=== PATIENT | male | born 1955 | race Hispanic/Latino ===

== ENCOUNTER 2019-07-16 05:51 | Emergency (ER) | payer BC, OTHER ==
[2019-07-16] MEDS ORDERED: HYDROCODONE/APAP 10/325 TAB ONE (07:18)
[2019-07-16] MEDS ORDERED: CYCLOBENZAPRINE 10 MG TAB ONE (07:18)
[2019-07-16] MEDS ORDERED: LIDOCAINE 4% PATCH ONE (07:19)
[2019-07-16] MEDS ORDERED: dexAMETHasone 10 MG/ML VIAL ONE (08:40)
--- NOTE | 2019-07-16 09:26 | ER ---
Nurse's Notes [facility] Name: Steven Ashton Age: 63 yrs Sex: Male : 1955 Arrival Date: 07/16/2019 Time: 05:56 Bed 7 Private MD: Diagnosis: Low back pain Presentation: 07/15 06:16 Chief complaint: Patient states: Low back pain x 3 days, has not had any relief; Denies lp1 any previous injury; States feeling like a muscle spasm. Coronavirus screen: Proceed with normal triage. Ebola Screen: No symptoms or risks identified at this time. Initial Sepsis Screen: Does the patient meet any 2 criteria? No. Patient's initial sepsis screen is negative. Does the patient have a suspected source of infection? No. Patient's initial sepsis screen is negative. Risk Assessment: Do you want to hurt yourself or someone else? Patient reports no desire to harm self or others. Onset of symptoms was July 16, 2019. 06:16 Method Of Arrival: Wheelchair lp1 06:16 Acuity: KENDALL 3 lp1 Triage Assessment: 06:20 General: Appears in no apparent distress. Behavior is calm, cooperative. Pain: lp1 Complains of pain in lumbar area Pain currently is 8 out of 10 on a pain scale. Quality of pain is described as sharp. Cardiovascular: Patient's skin is warm and dry. Respiratory: No deficits noted. Derm: Skin is pink, warm \T\ dry. Musculoskeletal: Circulation, motion, and sensation intact. Historical: - Allergies: 06:20 Dramamine; lp1 06:20 TETRACYCLINES; lp1 - Home Meds: 06:47 metformin 1,000 mg oral tab 1 tab 2 times per day [Active]; Xarelto 20 mg oral tab 1 lp1 tab once daily [Active]; atorvastatin 20 mg Oral tab 1 tab once daily [Active]; pantoprazole 40 mg oral TbEC 1 tab once daily [Active]; Plavix 75 mg Oral tab 1 tab once daily [Active]; losartan-hydrochlorothiazide 100-25 mg oral tab 1 tab once daily [Active]; Invokana 300 mg oral tab 1 tab once daily [Active]; aspirin 81 mg Oral chew 1 tab once daily [Active]; Toujeo SoloStar 300 unit/mL (1.5 mL) subcutaneous inpn [Active]; - PMHx: 06:20 Diabetes - NIDDM; Hypertension; CVA; lp1 - PSHx: 06:20 None; lp1 - Immunization history:: Adult Immunizations up to date. - Social history:: Smoking status: Patient denies any tobacco usage or history of. Screenin:20 Abuse screen: Denies threats or abuse. Denies injuries from another. Nutritional lp1 screening: No deficits noted. Tuberculosis screening: No symptoms or risk factors identified. Fall Risk None identified. Assessment: 07:10 General: Appears in no apparent distress. uncomfortable, Behavior is calm, cooperative, em appropriate for age. Pain: Complains of pain in lumbar area Pain currently is 8 out of 10 on a pain scale. Neuro: Level of Consciousness is awake, alert, obeys commands, Oriented to person, place, time, situation, Appropriate for age. Cardiovascular: Capillary refill < 3 seconds Patient's skin is warm and dry. Respiratory: Airway is patent Respiratory effort is even, unlabored, Respiratory pattern is regular, symmetrical. GI: Abdomen is flat. Derm: Skin is intact, is healthy with good turgor, Skin is pink, warm \T\ dry. Musculoskeletal: Capillary refill < 3 seconds, Range of motion: intact in all extremities. 08:30 Reassessment: reports pain is unchanged, provider notified. em 09:23 Reassessment: Patient appears in no apparent distress at this time. Patient and/or em family updated on plan of care and expected duration. Pain level reassessed. Patient is alert, oriented x 3, equal unlabored respirations, skin warm/dry/pink. Patient states feeling better. Vital Signs: 06:16 BP 137 / 78; Pulse 90; Resp 18; Temp 98.2(TE); Pulse Ox 99% on R/A; Weight 117.93 kg; lp1 Height 5 ft. 7 in. (170.18 cm); Pain 8/10; 06:16 Body Mass Index 40.72 (117.93 kg, 170.18 cm) lp1 ED Course: 05:56 Patient arrived in ED. ag3 06:19 Triage completed. lp1 06:19 Arm band placed on. lp1 06:49 [facility] pm1 06:49 Raj Del Rosario MD is Attending Physician. pm1 07:05 Hans Garsia, RN is Primary Nurse. em 07:10 Patient has correct armband on for positive identification. Bed in low position. Call em light in reach. 09:40 No provider procedures requiring assistance completed. Patient did not have IV access em during this emergency room visit. Administered Medications: 07:19 Drug: [place] 10 mg-325 mg 1 tabs Route: PO; em 08:30 Follow up: Response: No adverse reaction; Pain is unchanged, physician notified em 07:19 Drug: Lidoderm 5 % (700 mg/patch) 1 patches {Note: applied to lower back.} Route: em Topical; Site: affected area; 08:30 Follow up: Response: No adverse reaction; Pain is unchanged, physician notified em 07:19 Drug: Flexeril 10 mg Route: PO; em 08:30 Follow up: Response: No adverse reaction; Marked relief of symptoms; Pain is unchanged, em physician notified 08:37 Drug: Decadron 10 mg Route: IM; Site: right deltoid; em 09:23 Follow up: Response: No adverse reaction; Marked relief of symptoms; Pain is decreased em Outcome: 09:25 Discharge ordered by MD. pm1 09:40 Discharged to home via wheelchair, with friend. em 09:40 Condition: good 09:40 Discharge instructions given to patient, Instructed on discharge instructions, follow up and referral plans. no drinking with medication, no driving heavy equipment, medication usage, Demonstrated understanding of instructions, follow-up care, medications, Prescriptions given X 3. 09:41 Patient left the ED. ph Signatures: Hans Garsia, BERNADINE RN Demetria Hendrix RN RN 1 Kerrie Klein RN RN Ramesh Mejia, GABE FURNITURE MOVER HELPER pm1 Mirela Patterson ag3
--- NOTE | 2019-07-16 09:26 | EDPHYS ---
Physician Documentation [facility] Name: Steven Ashton Age: 63 yrs Sex: Male : 1955 Arrival Date: 07/16/2019 Time: 05:56 Bed 7 Private MD: ED Physician Raj Del Rosario HPI: 07/15 06:57 This 63 yrs old Male presents to ER via Wheelchair with complaints of Back pm1 Pain. 06:57 The patient presents with pain that is acute. The symptoms are located in the low back. pm1 Onset: The symptoms/episode began/occurred 3 day(s) ago. The pain does not radiate. Associated signs and symptoms: Pertinent negatives: abdominal pain, chest pain, constipation, dysuria, fever, headache, incontinence, numbness, tingling, vomiting, weakness. Modifying factors: The patient symptoms are alleviated by nothing, the patient symptoms are aggravated by bending, movement, standing, walking. Severity of symptoms: in the emergency department the symptoms are unchanged. The patient has experienced similar episodes in the past, multiple times, and the symptoms today are exactly the same, to previous lower back pain that has been treated by his PCP Dr. Diggs. Typically gets a steroid for treatment. Historical: - Allergies: 06:20 Dramamine; lp1 06:20 TETRACYCLINES; lp1 - Home Meds: 06:47 metformin 1,000 mg oral tab 1 tab 2 times per day [Active]; Xarelto 20 mg oral tab 1 lp1 tab once daily [Active]; atorvastatin 20 mg Oral tab 1 tab once daily [Active]; pantoprazole 40 mg oral TbEC 1 tab once daily [Active]; Plavix 75 mg Oral tab 1 tab once daily [Active]; losartan-hydrochlorothiazide 100-25 mg oral tab 1 tab once daily [Active]; Invokana 300 mg oral tab 1 tab once daily [Active]; aspirin 81 mg Oral chew 1 tab once daily [Active]; Toujeo SoloStar 300 unit/mL (1.5 mL) subcutaneous inpn [Active]; - PMHx: 06:20 Diabetes - NIDDM; Hypertension; CVA; lp1 - PSHx: 06:20 None; lp1 - Immunization history:: Adult Immunizations up to date. - Social history:: Smoking status: Patient denies any tobacco usage or history of. ROS: 06:57 Constitutional: Negative for fever, chills, and weight loss, Neck: Negative for injury, pm1 pain, and swelling, Cardiovascular: Negative for chest pain, palpitations, and edema, Respiratory: Negative for shortness of breath, cough, wheezing, and pleuritic chest pain, Abdomen/GI: Negative for abdominal pain, nausea, vomiting, diarrhea, and constipation. 06:57 : Negative for injury, bleeding, discharge, and swelling, MS/Extremity: Negative for injury and deformity, Skin: Negative for injury, rash, and discoloration, Neuro: Negative for headache, weakness, numbness, tingling, and seizure. 06:57 Back: Positive for pain with movement, of the left low back and right low back, Negative for decreased range of motion. Exam: 06:57 Constitutional: This is a well developed, well nourished patient who is awake, alert, pm1 and in no acute distress. Head/Face: Normocephalic, atraumatic. Neck: Trachea midline, no thyromegaly or masses palpated, and no cervical lymphadenopathy. Supple, full range of motion without nuchal rigidity, or vertebral point tenderness. No Meningismus. Chest/axilla: Normal chest wall appearance and motion. Nontender with no deformity. No lesions are appreciated. 06:57 Skin: Warm, dry with normal turgor. Normal color with no rashes, no lesions, and no evidence of cellulitis. MS/ Extremity: Pulses equal, no cyanosis. Neurovascular intact. Full, normal range of motion. 06:57 Cardiovascular: Exam negative for acute changes, Rate: normal, Rhythm: regular, Pulses: no pulse deficits are appreciated, Edema: is not appreciated. 06:57 Respiratory: Exam negative for acute changes, respiratory distress, shortness of breath, the patient does not display signs of respiratory distress. 06:57 Abdomen/GI: Inspection: obese Palpation: abdomen is soft and non-tender, in all quadrants. 06:57 Back: pain, that is mild, of the left low back and right low back, normal spinal alignment noted, vertebral tenderness, is not appreciated, muscle spasm, is appreciated in the left low back and right low back. 06:57 Neuro: Exam negative for acute changes, Orientation: is normal, Mentation: is normal, Motor: is normal, moves all fours, Sensation: is normal, no obvious gross deficits. Vital Signs: 06:16 BP 137 / 78; Pulse 90; Resp 18; Temp 98.2(TE); Pulse Ox 99% on R/A; Weight 117.93 kg; lp1 Height 5 ft. 7 in. (170.18 cm); Pain 8/10; 06:16 Body Mass Index 40.72 (117.93 kg, 170.18 cm) lp1 MDM: 06:56 Patient medically screened. pm1 06:56 Data reviewed: vital signs. Data interpreted: Pulse oximetry: on room air is 99 %. pm1 Interpretation: normal. 08:24 ED course: patient reports improvement with steroids in the past from his PCP. pain not pm1 improved with prior medications given in the ER. Was trying to avoid steroids due to DM. However patient reports that he has not had any issues with managing his glucose levels with steroids in the past for the same issue. 09:23 Counseling: I had a detailed discussion with the patient and/or guardian regarding: the pm1 historical points, exam findings, and any diagnostic results supporting the discharge/admit diagnosis, the need for outpatient follow up, to return to the emergency department if symptoms worsen or persist or if there are any questions or concerns that arise at home. 09:29 ED course: [facility] aware reviewed. pm1 Administered Medications: 07:19 Drug: [place] 10 mg-325 mg 1 tabs Route: PO; em 08:30 Follow up: Response: No adverse reaction; Pain is unchanged, physician notified em 07:19 Drug: Lidoderm 5 % (700 mg/patch) 1 patches {Note: applied to lower back.} Route: em Topical; Site: affected area; 08:30 Follow up: Response: No adverse reaction; Pain is unchanged, physician notified em 07:19 Drug: Flexeril 10 mg Route: PO; em 08:30 Follow up: Response: No adverse reaction; Marked relief of symptoms; Pain is unchanged, em physician notified 08:37 Drug: Decadron 10 mg Route: IM; Site: right deltoid; em 09:23 Follow up: Response: No adverse reaction; Marked relief of symptoms; Pain is decreased em Disposition: 07/16/19 09:25 Discharged to Home. Impression: Low back pain. - Condition is Stable. - Discharge Instructions: Back Pain, Adult, Musculoskeletal Pain, Back Injury Prevention, [id number]. - Prescriptions for Cyclobenzaprine 10 mg Oral Tablet - take 1 tablet by ORAL route every 8 hours As needed; 30 tablet. Medrol (Dionicio) 4 mg Oral Tablets, Dose Pack - take 1 tablet by ORAL route as directed - follow package instructions; 1 packet. Tylenol- Codeine #3 300-30 mg Oral Tablet - take 1 tablet by ORAL route every 6 hours As needed; 12 tablet. - Work release form, Medication Reconciliation Form, Thank You Letter, Antibiotic Education, Prescription Opioid Use form. - Follow up: Emergency Department; When: As needed; Reason: Worsening of condition. Follow up: Private Physician; When: 2 - 3 days; Reason: Recheck today's complaints, Continuance of care, Re-evaluation by your physician. - Problem is new. - Symptoms have improved. Addendum: 08/01/2019 16:19 Co-signature as Attending Physician, Jordan Mathur MD I agree with the assessment and k dr plan of care. Signatures: Jordan Mathur MD MD [facility] Hans Garsia, RN RN Demetria Hendrix RN RN lp1 Kerrie Klein RN RN ph Marinas, Patrick, GABE TIRE TESTER pm1 Corrections: (The following items were deleted from the chart) 07/15 09:41 09:25 07/16/2019 09:25 Discharged to Home. Impression: Low back pain. Condition is ph Stable. Forms are Work release form, Medication Reconciliation Form, Thank You Letter, Antibiotic Education, Prescription Opioid Use. Follow up: Emergency Department; When: As needed; Reason: Worsening of condition. Follow up: Private Physician; When: 2 - 3 days; Reason: Recheck today's complaints, Continuance of care, Re-evaluation by your physician. Problem is new. Symptoms have improved. pm1
[2019-07-16 09:46] VITALS: BP 137/78; TEMP 98.2; O2SAT 99
== END 2019-07-16 09:41 | disposition home or self-care (01) ==
LOC: ER 05:51
DX: M54.5 Low back pain (principal); I10 Essential (primary) hypertension; E11.9 Type 2 diabetes mellitus without complications; Z86.73 Personal history of transient ischemic attack (TIA), and cerebral infarction without residual deficits; Z79.01 Long term (current) use of anticoagulants; Z79.82 Long term (current) use of aspirin; Z79.4 Long term (current) use of insulin; Z88.1 Allergy status to other antibiotic agents; Z88.8 Allergy status to other drugs, medicaments and biological substances
CPT/HCPCS: 96372; 99283; J1100

== ENCOUNTER 2021-01-15 13:35 | Observation (INO) | payer BC ==
[2021-01-15] MEDS ORDERED: FAMOTIDINE 20 MG/2 ML VIAL IV ONE ×2 (13:55→14:10)
[2021-01-15] MEDS ORDERED: NA CHLORIDE 0.9% 0 ML ONE (13:55)
[2021-01-15] MEDS ORDERED: ASPIRIN 81 MG CHEWABLE TABLET ONE (13:55)
[2021-01-15] MEDS ORDERED: ASPIRIN 325 MG TAB ONE (14:10)
[2021-01-15] MEDS ORDERED: NA CHLORIDE 0.9% 1,000 ML ONE (14:10)
[2021-01-15 14:34] LABS: Absolute Lymphocytes (CBC) 1.5 K/uL (0.7-4.9); Hematocrit 43.4 % (39.6-49.0); Lymphocytes % 13.1 % (15.3-44.8); MPV 10.8 fL (7.6-11.3)
[2021-01-15 14:35] LABS: Protime INR 1.86
--- NOTE | 2021-01-15 15:02 | EDPHYS ---
Physician Documentation [facility] Name: Steven Ashton Age: 65 yrs Sex: Male : 1955 Arrival Date: 01/15/2021 Time: 13:38 Bed 7 Private MD: JUNITO Physician Chadwick Cunningham HPI: 01/15 14:53 This 65 yrs old Male presents to ER via Ambulatory with complaints of Abnormal atif test results-sent per anthony. 14:53 The patient or guardian reports chest pain that is located primarily in the substernal atif area, anterior chest wall, bilaterally. Onset: 2 month(s) ago. The patient presents with DYSPEPSIA , CP WITH EATING INTO CHEST , NECK. Onset: The symptoms/episode began/occurred 2 month(s) ago. The pain does not radiate. The symptoms do not radiate. Associated signs and symptoms: none. The symptoms are described as crampy, intermittent. Modifying factors: The symptoms are alleviated by nothing, the symptoms are aggravated by food. The chest pain is described as a pressure, squeezing. Historical: - Allergies: 13:53 Dramamine; iw 13:53 TETRACYCLINES; iw - Home Meds: 13:53 metformin 1,000 mg Oral tab 1 tab 2 times per day [Active]; Xarelto 20 mg Oral tab 1 iw tab once daily [Active]; atorvastatin 20 mg Oral tab 1 tab once daily [Active]; Invokana 300 mg Oral tab 1 tab once daily [Active]; pantoprazole 40 mg Oral TbEC 1 tab once daily [Active]; Toujeo SoloStar 300 unit/mL (1.5 mL) subcutaneous inpn [Active]; Plavix 75 mg Oral tab 1 tab once daily [Active]; losartan 100 mg oral tab once daily [Active]; - PMHx: 13:53 CVA; Diabetes - NIDDM; Hypertension; iw - PSHx: 13:53 gastric bypass; iw - Immunization history:: Client reports receiving the 2nd dose of the Covid vaccine. - Social history:: Smoking status: Patient denies any tobacco usage or history of. - Family history:: not pertinent. ROS: 14:53 Constitutional: Negative for fever, chills, and weight loss, Eyes: Negative for injury, atif pain, redness, and discharge, ENT: Negative for injury, pain, and discharge, Neck: Negative for injury, pain, and swelling, Respiratory: Negative for shortness of breath, cough, wheezing, and pleuritic chest pain, Abdomen/GI: Negative for abdominal pain, nausea, vomiting, diarrhea, and constipation, Back: Negative for injury and pain, : Negative for injury, bleeding, discharge, and swelling, MS/Extremity: Negative for injury and deformity, Skin: Negative for injury, rash, and discoloration, Neuro: Negative for headache, weakness, numbness, tingling, and seizure, Psych: Negative for depression, anxiety, suicide ideation, homicidal ideation, and hallucinations, Allergy/Immunology: Negative for hives, rash, and allergies, Endocrine: Negative for neck swelling, polydipsia, polyuria, polyphagia, and marked weight changes, Hematologic/Lymphatic: Negative for swollen nodes, abnormal bleeding, and unusual bruising. 14:53 Cardiovascular: Positive for chest pain, of the chest. Exam: 14:53 Constitutional: This is a well developed, well nourished patient who is awake, alert, atif and in no acute distress. Head/Face: Normocephalic, atraumatic. Eyes: Pupils equal round and reactive to light, extra-ocular motions intact. Lids and lashes normal. Conjunctiva and sclera are non-icteric and not injected. Cornea within normal limits. Periorbital areas with no swelling, redness, or edema. ENT: Nares patent. No nasal discharge, no septal abnormalities noted. Tympanic membranes are normal and external auditory canals are clear. Oropharynx with no redness, swelling, or masses, exudates, or evidence of obstruction, uvula midline. Mucous membranes moist. Neck: Trachea midline, no thyromegaly or masses palpated, and no cervical lymphadenopathy. Supple, full range of motion without nuchal rigidity, or vertebral point tenderness. No Meningismus. Chest/axilla: Normal chest wall appearance and motion. Nontender with no deformity. No lesions are appreciated. Cardiovascular: Regular rate and rhythm with a normal S1 and S2. No gallops, murmurs, or rubs. Normal PMI, no JVD. No pulse deficits. Respiratory: Lungs have equal breath sounds bilaterally, clear to auscultation and percussion. No rales, rhonchi or wheezes noted. No increased work of breathing, no retractions or nasal flaring. Abdomen/GI: Soft, non-tender, with normal bowel sounds. No distension or tympany. No guarding or rebound. No evidence of tenderness throughout. Back: No spinal tenderness. No costovertebral tenderness. Full range of motion. Male : Normal genitalia with no discharge or lesions. Skin: Warm, dry with normal turgor. Normal color with no rashes, no lesions, and no evidence of cellulitis. MS/ Extremity: Pulses equal, no cyanosis. Neurovascular intact. Full, normal range of motion. Neuro: Awake and alert, GCS 15, oriented to person, place, time, and situation. Cranial nerves II-XII grossly intact. Motor strength 5/5 in all extremities. Sensory grossly intact. Cerebellar exam normal. Normal gait. Psych: Awake, alert, with orientation to person, place and time. Behavior, mood, and affect are within normal limits. 14:53 Musculoskeletal/extremity: ROM: full active range of motion, Circulation is intact in all extremities. Sensation intact. Compartment Syndrome exam of affected extremity: is normal. DVT Exam: No signs of deep vein thrombosis. no pain, no swelling, no tenderness, negative Homans' sign noted on exam, no appreciated bluish discoloration, no erythema, no increased warmth. 15:24 ECG was reviewed by the Attending Physician. [facility] Vital Signs: 13:51 BP 133 / 98; Pulse 70; Resp 16; Temp 98.7; Pulse Ox 100% on R/A; Pain 0/10; bp 16:00 BP 146 / 75; Pulse 69; Resp 17; Pulse Ox 99% ; bp 17:47 BP 168 / 91; Pulse 64; Resp 15; Pulse Ox 98% ; bp MDM: 13:45 Patient medically screened. [facility] 14:57 Differential diagnosis: abnormal EKG, acute myocardial infarction, anxiety, coronary atif artery disease chest wall pain, Cholelithiasis costochondritis, esophagitis, gastroesophageal reflux disease (GERD), hiatal hernia, pancreatitis, peptic ulcer disease, pulmonary embolus, unstable angina, coronary artery disease, myocardia ischemia or infarction, Peptic Ulcer Disease, urinary tract infection. HEART Score: History: Moderately Suspicious (1), ECG: Non specific repolarization disturbance / LBTB / PM (1), Age: > 45 and < 65 years (1), Risk Factors: > or = 3 Risk factors for atherosclerotic disease (2), [Hypercholesterolemia] [Hypertension] [DM] [+ Family HX] [Obesity] Troponin: < or = 1 x Normal Limit (0). The patient was given aspirin in the Emergency Department. The patient's deep vein thrombosis risk score was calculated as follows: Total Score: 0. This patient was found to be at low risk for a deep vein thrombosis by using the Well's assessment criteria. The patient's pulmonary embolism risk score was calculated as follows: Total Score: 0-2 points. This patient was found to be at low risk for a pulmonary embolism by using the Well's assessment criteria. DMITRI Risk Score: TOTAL SCORE = 0. Data reviewed: vital signs, nurses notes, lab test result(s), EKG, radiologic studies, plain films. Data interpreted: school bus monitor: rate is 70 beats/min, rhythm is regular, Pulse oximetry: on room air is 100 %. Test interpretation: by ED physician or midlevel provider: ECG, plain radiologic studies. Counseling: I had a detailed discussion with the patient and/or guardian regarding: the historical points, exam findings, and any diagnostic results supporting the discharge/admit diagnosis, the presence of at least one elevated blood pressure reading (>120/80) during this emergency department visit, lab results, radiology results, the need for further work-up and treatment in the hospital. 01/15 13:47 Order name: Basic Metabolic Panel; Complete Time: 15:49 [facility] 01/15 13:47 Order name: CBC with Diff; Complete Time: 15:00 [facility] 01/15 13:47 Order name: LFT's; Complete Time: 15:49 [facility] 01/15 13:47 Order name: Magnesium; Complete Time: 15:49 [facility] 01/15 13:47 Order name: NT PRO-BNP; Complete Time: 15:49 [facility] 01/15 13:47 Order name: PT-INR; Complete Time: 15:00 [facility] 01/15 13:47 Order name: Troponin (emerg Dept Use Only); Complete Time: 15:49 [facility] 01/15 13:47 Order name: XRAY Chest (1 view); Complete Time: 15:49 [facility] 01/15 13:47 Order name: Lipase; Complete Time: 15:49 [facility] 01/15 13:47 Order name: SARS-COV-2 RT PCR (Document "Date of Onset" if Symptomatic); Complete Time: [facility] 15:49 01/15 19:21 Order name: Urine Dipstick-Ancillary EDMS 01/15 13:47 Order name: EKG; Complete Time: 13:48 [facility] 01/15 13:47 Order name: Cardiac monitoring; Complete Time: 14:19 [facility] 01/15 13:47 Order name: EKG - Nurse/Tech; Complete Time: 14:02 [facility] 01/15 13:47 Order name: IV Saline Lock; Complete Time: 14:18 [facility] 01/15 13:47 Order name: Labs collected and sent; Complete Time: 14:19 [facility] 01/15 13:47 Order name: O2 Per Protocol; Complete Time: 14:19 [facility] 01/15 13:47 Order name: O2 Sat Monitoring; Complete Time: 14:19 [facility] 01/15 13:47 Order name: Urine Dipstick-Ancillary (obtain specimen); Complete Time: 19:16 [facility] 01/15 14:26 Order name: Labs - recollect needed: recollect green top; Complete Time: 14:35 01/15 15:19 Order name: CONS Physician Consult EDMS 01/15 15:19 Order name: CONS Physician Consult EDMS EC:24 Rate is 69 beats/min. Rhythm is regular. QRS [place] is Normal. ND interval is normal. QRS atif interval is normal. QT interval is normal. No Q waves. T waves are Normal. No ST changes noted. Clinical impression: NSR w/ Non-specific ST/T Changes and No evidence of ischemia. Interpreted by me. Reviewed by me. Administered Medications: 14:10 Drug: NS 0.9% 1000 ml Route: IV; Rate: 125 ml/hr; Site: right forearm; bp 14:57 Follow up: Response: No adverse reaction 6 19:20 Follow up: IV Status: Infusion continued upon admission bp 14:10 Drug: Aspirin Chewable Tablet 324 mg Route: PO; bp 14:38 Follow up: Response: No adverse reaction bp 14:57 Follow up: Response: No adverse reaction jh6 14:10 Drug: Pepcid (famotidine) 20 mg Route: IVP; Site: right forearm; bp 14:37 Follow up: Response: No adverse reaction bp 14:57 Follow up: Response: No adverse reaction jh6 Disposition Summary: 01/15/21 15:01 Hospitalization Ordered Hospitalization Status: Observation [facility] Provider: Abdiel Diggs cha Location: Telemetry/MedSurg (observation) atif Condition: Fair atif Problem: new atif Symptoms: have improved atif Bed/Room Type: Standard atif Room Assignment: 408(01/15/21 18:50) dw Diagnosis - Chest pain, unspecified atif - Functional dyspepsia atif - Type 2 diabetes mellitus with hyperglycemia atif - Essential (primary) hypertension atif Forms: - Medication Reconciliation Form atif - SBAR form atif Signatures: Dispatcher [employer] Cristiana Patel Diana, RN RN Chadwick Paige MD MD cha Williams, Irene, RN RN iw Tuan Liu RN RN bp Hastedt, Jennifer RN jh6 Corrections: (The following items were deleted from the chart) 18:49 15:01 atif dw 18:50 18:49 409 dw dw
--- NOTE | 2021-01-15 15:02 | ER ---
Nurse's Notes [facility] Name: Steven Ashton Age: 65 yrs Sex: Male : 1955 Arrival Date: 01/15/2021 Time: 13:38 Bed 7 Private MD: Diagnosis: Chest pain, unspecified;Functional dyspepsia;Type 2 diabetes mellitus with hyperglycemia;Essential (primary) hypertension Presentation: 01/15 13:51 Chief complaint: Patient states: has had intermittent chest tightness for past 6 iw months, went to Dr. Diggs's office bc pain was getting worse, EKG had some abnormal changes , was told to be seen in ER , pain is 9/10 on exertion , resolves at rest. Coronavirus screen: At this time, the client does not indicate any symptoms associated with coronavirus-19. Ebola Screen: Patient negative for fever greater than or equal to 101.5 degrees Fahrenheit, and additional compatible Ebola Virus Disease symptoms Patient denies exposure to infectious person. Patient denies travel to an Ebola-affected area in the 21 days before illness onset. No symptoms or risks identified at this time. Initial Sepsis Screen: Does the patient meet any 2 criteria? No. Patient's initial sepsis screen is negative. Does the patient have a suspected source of infection? No. Patient's initial sepsis screen is negative. Risk Assessment: Do you want to hurt yourself or someone else? Patient reports no desire to harm self or others. Onset of symptoms was July 2020. 13:51 Method Of Arrival: Ambulatory iw 13:51 Acuity: KENDALL 2 iw Triage Assessment: 14:00 General: Appears distressed, uncomfortable, Behavior is cooperative, appropriate for bp age, anxious. Pain: Complains of pain in chest. EENT: No deficits noted. Neuro: Level of Consciousness is awake, alert, obeys commands, Oriented to person, place, time, situation, Appropriate for age. Cardiovascular: Reports chest pain, Chest pain is described as severe, episodes are intermittent is aggravated by activity. Respiratory: Airway is patent Respiratory effort is even, unlabored, Respiratory pattern is regular, symmetrical. GI: No signs and/or symptoms were reported involving the gastrointestinal system. : No signs and/or symptoms were reported regarding the genitourinary system. Derm: No deficits noted. Musculoskeletal: No deficits noted. Historical: - Allergies: 13:53 Dramamine; iw 13:53 TETRACYCLINES; iw - Home Meds: 13:53 metformin 1,000 mg Oral tab 1 tab 2 times per day [Active]; Xarelto 20 mg Oral tab 1 iw tab once daily [Active]; atorvastatin 20 mg Oral tab 1 tab once daily [Active]; Invokana 300 mg Oral tab 1 tab once daily [Active]; pantoprazole 40 mg Oral TbEC 1 tab once daily [Active]; Toujeo SoloStar 300 unit/mL (1.5 mL) subcutaneous inpn [Active]; Plavix 75 mg Oral tab 1 tab once daily [Active]; losartan 100 mg oral tab once daily [Active]; - PMHx: 13:53 CVA; Diabetes - NIDDM; Hypertension; iw - PSHx: 13:53 gastric bypass; iw - Immunization history:: Client reports receiving the 2nd dose of the Covid vaccine. - Social history:: Smoking status: Patient denies any tobacco usage or history of. - Family history:: not pertinent. Screenin:00 Abuse screen: Denies threats or abuse. Denies injuries from another. Nutritional bp screening: No deficits noted. Tuberculosis screening: No symptoms or risk factors identified. Fall Risk None identified. Assessment: 14:37 General: SEE TRIAGE NOTE. bp 16:00 Reassessment: No changes from previously documented assessment. Patient and/or family bp updated on plan of care and expected duration. Pain level reassessed. ADMIT INITATED. 17:45 Reassessment: No changes from previously documented assessment. Patient and/or family bp updated on plan of care and expected duration. Pain level reassessed. ADMIT IN PROCESS. 19:19 Reassessment: REPORT GIVEN FOR RM 408. bp Vital Signs: 13:51 BP 133 / 98; Pulse 70; Resp 16; Temp 98.7; Pulse Ox 100% on R/A; Pain 0/10; bp 16:00 BP 146 / 75; Pulse 69; Resp 17; Pulse Ox 99% ; bp 17:47 BP 168 / 91; Pulse 64; Resp 15; Pulse Ox 98% ; bp ED Course: 13:38 Patient arrived in ED. ds1 13:45 Chadwick Cunningham MD is Attending Physician. atif 13:51 Tuan Liu, BERNADINE is Primary Nurse. bp 13:53 Triage completed. iw 13:55 Arm band placed on. iw 14:00 Patient has correct armband on for positive identification. Bed in low position. Call bp light in reach. Side rails up X2. 14:02 EKG done, by ED staff, reviewed by Chadwick Cunningham MD. em1 14:10 Inserted saline lock: 20 gauge in right forearm, using aseptic technique. Blood bp collected. 14:37 XRAY Chest (1 view) In Process Unspecified. EDPA 15:00 Abdiel Diggs MD is Hospitalizing Provider. atif 19:20 No provider procedures requiring assistance completed. Patient admitted, IV remains in bp place. Administered Medications: 14:10 Drug: NS 0.9% 1000 ml Route: IV; Rate: 125 ml/hr; Site: right forearm; bp 14:57 Follow up: Response: No adverse reaction jh6 19:20 Follow up: IV Status: Infusion continued upon admission bp 14:10 Drug: Aspirin Chewable Tablet 324 mg Route: PO; bp 14:38 Follow up: Response: No adverse reaction bp 14:57 Follow up: Response: No adverse reaction jh6 14:10 Drug: Pepcid (famotidine) 20 mg Route: IVP; Site: right forearm; bp 14:37 Follow up: Response: No adverse reaction bp 14:57 Follow up: Response: No adverse reaction jh6 Outcome: 15:01 Decision to Hospitalize by Provider. atif 19:19 Admitted to Med/surg accompanied by tech, via wheelchair, room 408, with chart. bp 19:19 Condition: stable 19:19 Instructed on the need for admit. 19:52 Patient left the ED. bb Signatures: Dispatcher [employer] [facility] Chadwick Cunningham MD MD cha Sanford, Demi ds1 Yoko Steiner, RN RN bb Elissa Arredondo, Fly Tamayo RN em1 Tuan Liu, RN RN Naila Reyes, RN RN jh6 Corrections: (The following items were deleted from the chart) 17:46 17:45 Reassessment: No changes from previously documented assessment. Patient and/or bp family updated on plan of care and expected duration. Pain level reassessed. ADMIT INITIATED bp 19:20 13:51 BP 133 / 98; Pulse 70bpm; Resp 16bpm; Pulse Ox 100% RA; Pain 0/10; iw bp
[2021-01-15 15:05] LABS: ALT/SGPT 21 U/L (12-78); AST/SGOT 10 U/L (15-37); Albumin 3.6 g/dL (3.4-5.0); Alkaline Phosphatase 64 U/L (45-117); BUN Blood Urea Nitrogen 28 mg/dL (7-18); Bicarbonate 24 mmol/L (21-32); Bilirubin Direct 0.2 mg/dL (0-0.2); Bilirubin Total 1.1 mg/dL (0.2-1.0); Glucose Level 119 mg/dL (74-106); Lipase 133 U/L (73-393); Magnesium 1.8 mg/dL (1.8-2.4); NT PRO-BNP 826 pg/mL (<125); Potassium 4.1 mmol/L (3.5-5.1); Protein, Total 6.4 g/dL (6.4-8.2); Sodium Level 141 mmol/L (136-145); Troponin (Emerg Dept Use Only) < 0.02 ng/mL (0.0-0.045)
--- NOTE | 2021-01-15 15:05 | RAD REPORT ---
EXAM DESCRIPTION: Ninfa Single View01/15/2021 2:37 pm CLINICAL HISTORY: Chest pain COMPARISON: 2016 FINDINGS: The lungs appear clear of acute infiltrate. The heart is normal size IMPRESSION: No acute abnormalities displayed
[2021-01-15 19:21] LABS: Urine Blood 1+ (Negative); Urine Glucose Negative (Negative); Urine Protein Negative (Negative); Urine Specific Gravity 1.025 (1.005-1.030)
[2021-01-15] MEDS ORDERED: GLUCAGON 1 MG/VIAL IM PRN (20:34)
[2021-01-15] MEDS: INSULIN -REGULAR HUMAN 50 UNIT/0.5 ML ML SQ SCH ×2 (20:34→21:00)
[2021-01-15] MEDS ORDERED: ONDANSETRON 4 MG/2 ML VIAL IV PRN (20:34)
[2021-01-15] MEDS ORDERED: D50W 25 GM/50 ML SYRINGE IV PRN (20:34)
[2021-01-15] MEDS ORDERED: ACETAMINOPHEN 325 MG TABLET PO PRN (20:34)
[2021-01-15] MEDS: ATORVASTATIN 20 MG TAB PO SCH (21:48)
[2021-01-15 21:49] VITALS: BMI 43.6
[2021-01-15] MEDS: FAMOTIDINE 20 MG/2 ML VIAL IV SCH (22:14)
[2021-01-15] MEDS: RIVAROXABAN 10 MG TABLET PO SCH (22:14)
[2021-01-16 05:25] LABS: Absolute Lymphocytes (CBC) 3.3 K/uL (0.7-4.9); Basophils % 1.1 % (0-1.3); Hematocrit 38.7 % (39.6-49.0); Lymphocytes % 30.2 % (15.3-44.8); MPV 10.1 fL (7.6-11.3); RBC Red Blood Cell Count 4.88 M/uL (4.33-5.43)
[2021-01-16 05:39] LABS: BUN Blood Urea Nitrogen 22 mg/dL (7-18); Bicarbonate 29 mmol/L (21-32); CKMB Creatine Kinase MB 1.2 ng/mL (1.0-3.6); Creatine Phosphokinase 40 U/L (39-308); Glucose Level 90 mg/dL (74-106); Potassium 4.1 mmol/L (3.5-5.1); Sodium Level 144 mmol/L (136-145); Troponin I < 0.02 ng/mL (0.0-0.045)
[2021-01-16 06:07] VITALS: O2SAT 95
[2021-01-16] MEDS: INSULIN -REGULAR HUMAN 50 UNIT/0.5 ML ML SQ SCH ×3 (07:30→16:19)
[2021-01-16] MEDS: FAMOTIDINE 20 MG/2 ML VIAL IV SCH (09:00)
[2021-01-16] MEDS ORDERED: CLOPIDOGREL 75 MG TABLET PO SCH (09:00)
[2021-01-16] MEDS: RIVAROXABAN 10 MG TABLET PO SCH (09:07)
[2021-01-16] MEDS: ATORVASTATIN 20 MG TAB PO SCH (09:08)
--- NOTE | 2021-01-16 12:05 | EKG ---
Test Date: 2021-01-15 Test Time: 13:50:07 Supervisor Multifocal Lens: KATERINA MEASUREMENT RESULTS: Intervals: Rate: 69 WI: 180 QRSD: 82 QT: 378 QTc: 405 [place]: P: 41 WI: 180 QRS: -10 T: 5 INTERPRETIVE STATEMENTS: Normal sinus rhythm Inferior infarct, age undetermined Possible Anterior infarct, age undetermined Abnormal ECG Compared to ECG 09/22/2019 09:46:06 Myocardial infarct finding now present Left-axis deviation no longer present T-wave abnormality no longer present Electronically Signed On 01-16-21 12:02:53 OUTBOARD MOTORBOAT RIGGER by Dariel Melton
--- NOTE | 2021-01-16 12:44 | ECHO ---
HEIGHT: 5 ft 4 in WEIGHT: 254 lb 0 oz DATE OF STUDY: 01/16/[address]: Dariel Melton MD 2-DIMENSIONAL: YES M.MODE: YES DOPPLER: YES COLOR FLOW: YES TDS: PORTABLE: DEFINITY: BUBBLE STUDY: DIAGNOSIS: CHEST PAIN CARDIAC HISTORY: CATHERIZATION: NO SURGERY: NO PROSTHETIC VALVE: NO PACEMAKER: NO MEASUREMENTS (cm) DIASTOLIC (NORMALS) SYSTOLIC (NORMALS) IVSd 1.4 (0.6-1.2) LA Diam 3.0 (1.9-4.0) LVEF 69% LVIDd 3.7 (3.5-5.7) LVIDs 2.3 (2.0-3.5) %FS 38% LVPWd 1.4 (0.6-1.2) Ao Diam 2.9 (2.0-3.7) 2 DIMENSIONAL ASSESSMENT: RIGHT ATRIUM: NORMAL LEFT ATRIUM: NORMAL RIGHT VENTRICLE: NORMAL LEFT VENTRICLE: NORMAL TRICUSPID VALVE: NORMAL MITRAL VALVE: NORMAL PULMONIC VALVE: NORMAL AORTIC VALVE: SCLEROSIS PERICARDIAL EFFUSION: NONE AORTIC ROOT: NORMAL LEFT VENTRICULAR WALL MOTION: NORMAL DOPPLER/COLOR FLOW: NORMAL COMMENTS: NORMAL LEFT VENTRICULAR SIZE AND FUNCTION. AORTIC SCLEROSIS - NO STENOSIS. NO WALL MOTION ABNORMALITY. TECHNOLOGIST: CHANEL LINDSEY
[2021-01-16 16:39] VITALS: BP 147/70; TEMP 97.5
[2021-01-16] MEDS ORDERED: RIVAROXABAN 20 MG TABLET PO SCH (17:00)
--- NOTE | 2021-01-19 18:44 | CON ---
Date of Consultation: 01/16/2021 Reason For Consultation: Chest pain. History Of Present Illness: Mr. Ashton is a 65-year-old male with a history of hypertension, dyslipid emia, paroxysmal atrial fibrillation, diabetes, gastroesophageal reflux disease. He came in with randi st pain that occurred mostly after he eats, occasionally wakes him up at night. He wakes up in the m orning with it. Has some nausea, but no diaphoresis. Denied PND, orthopnea, pedal edema, palpitatio ns, or syncope. He has been short of breath recently with exertion. Past Medical History: As stated above. Allergies: HE IS ALLERGIC TO TETRACYCLINES. Review of Systems: Negative. Social History: Negative. Family History: Negative. Medications: At home include Hyzaar, Xarelto, Lipitor metformin, Protonix, Plavix, and insulin. Physical Examination: General: He is moderately obese. Vital Signs: Stable, afebrile, sinus rhythm. HEENT: Negative. Neck: Supple with no bruit. Chest: Clear. Cardiac: Revealed a regular rhythm and rate with S4 gallops. Abdomen: Benign. Extremities: Revealed no clubbing, cyanosis, or edema. Diagnostic Data: Showed a white count of 11. Chest x-ray was negative. EKG was unremarkable. Impression And Plan: Atypical chest pain, most likely gastroesophageal reflux disease or gastritis. Endoscopy and colonoscopy should be planned. I think GI has seen him. I would like him to get an e chocardiogram to make sure we are not dealing with any cardiomyopathy. He has paroxysmal atrial fibr illation, on Xarelto. He has gastroesophageal reflux disease, on Protonix. He has a history of diab etes, on metformin and insulin. He has a history of dyslipidemia, on Lipitor. He has a history of h ypertension. He is on Hyzaar. I am very comfortable with Mr. Ashton going home after his GI workup. We will see what the echocardiogram shows. I will set him up for outpatient MPI in the very near [facility]. Case was discussed with Dr. Diggs. JAI/SHAY Voice ID: [id number] Report ID: [id number]
== END 2021-01-16 18:17 | disposition home or self-care (01) ==
LOC: ER 13:35 → ERHOLD 15:37 → 4TH 19:20
PROVIDERS: ADMIT Family Medicine; ATTEND Family Medicine
DX: R07.89 Other chest pain (principal); I10 Essential (primary) hypertension; E78.5 Hyperlipidemia, unspecified; I48.0 Paroxysmal atrial fibrillation; E11.9 Type 2 diabetes mellitus without complications; K21.9 Gastro-esophageal reflux disease without esophagitis; Z20.822 Contact with and (suspected) exposure to COVID-19
CPT/HCPCS: 96361; 93005 ×2; 93306; 85025 ×2; 80048 ×2; 36415; 83735; 82550; 85610; 82947 ×4; 80076; 81003; 84484 ×3; 82553; 83690; 83880; 71045; 96374; 99285; U0003; J7030; G0378 ×3

== ENCOUNTER 2021-01-31 10:00 | Day surgery (SDC) | payer BC ==
[2021-01-30 09:37] LABS: Potassium 4.2 mmol/L (3.5-5.1)
[2021-01-30 09:40] LABS: Absolute Lymphocytes (CBC) 2.4 K/uL (0.7-4.9); Hematocrit 42.4 % (39.6-49.0); Lymphocytes % 22.9 % (15.3-44.8); MPV 10.2 fL (7.6-11.3); RBC Red Blood Cell Count 5.23 M/uL (4.33-5.43)
[2021-01-30 10:49] LABS: Protime INR 1.07
[2021-01-31] MEDS ORDERED: NA CHLORIDE 0.9% 500 ML ONE (10:36)
[2021-01-31] MEDS ORDERED: LIDOCAINE 1% 20 ML MDV ONE (11:58)
[2021-01-31] MEDS ORDERED: HEPA 1000U/500MLS 2,000 UNIT/1,000 ML BAG IV ONE (11:58)
[2021-01-31] MEDS ORDERED: MIDAZOLAM HCL 2 MG/2 ML INJ ONE (11:59)
[2021-01-31] MEDS ORDERED: VERAPAMIL HCL 10 MG/4 ML VIAL IV ONE (11:59)
[2021-01-31] MEDS ORDERED: FENTANYL CITR 100 MCG/2 ML ONE (11:59)
[2021-01-31] MEDS ORDERED: ATROPINE SULF 1 MG/10 ML SYR IV ONE (12:00)
[2021-01-31] MEDS ORDERED: HEPARIN 5000 UNIT/ML 1 ML VIAL ONE (12:00)
[2021-01-31] MEDS ORDERED: NITROGLYCERIN 100 MCG/ML SYR (for cath lab use only) IV ONE (12:00)
--- NOTE | 2021-01-31 13:18 | OP ---
Date of Procedure: 01/31/2021 Surgeon: KEO VALDIVIA Procedure Performed: Selective coronary angiogram. Indication: Unstable angina with abnormal stress test. Access: Right radial artery 6[place] closed with TR band. Complications: None. Bleeding: Less than 10 mL. Procedure In Detail: After risks, benefits, and alternatives were explained, the patient agreed to t he procedure and signed informed consent. The patient was brought into the cardiac catheterization l aboratory, prepped and draped in the usual sterile fashion. We used fentanyl and Versed in increment al doses to achieve adequate moderate sedation. Then, I accessed right radial artery using pediatric micropuncture kit, placed a 6-[place] Slender sheath and then took a 5-[place] Quimby 4.0 catheter into the aortic root, engaged the left main and right coronary artery, took standard views. I then took the catheter out, sheath out, and placed TR band with good hemostasis. Findings: 1.Left main is normal. 2.LAD; proximal portion looks normal; however, the bifurcation of the first diagonal heavily calcifi ed 99% stenosis that is long and then becomes diffusely 80% stenosis in the midportion. In the dista l portion, there is a focal 70% stenosis at 2 different locations. 3.Left circumflex; there is an artery that is giving supply to the RCA with a mid and distal 80% to 90% and then the OM has a mid 70% stenosis and it collateralized the RCA. 4.RCA; totally occluded in the midportion with a very large PLB and PDA branches that getting flow f rom the circ. Conclusion: Severe multivessel coronary artery disease, heavily calcified vessels. Plan: Transfer for CABG. SR/MODL Voice ID: [id number] Report ID: [id number]
[2021-01-31 14:28] VITALS: TEMP 97.4
[2021-01-31 15:58] VITALS: BP 147/67; O2SAT 97
== END 2021-01-31 14:35 | disposition short-term general hospital (02) ==
LOC: CCL 10:00 → 2ND 12:35 → CCL 12:35
PROVIDERS: ATTEND Internal Medicine
DX: I25.110 Atherosclerotic heart disease of native coronary artery with unstable angina pectoris (principal); I25.82 Chronic total occlusion of coronary artery; I48.0 Paroxysmal atrial fibrillation; I10 Essential (primary) hypertension; E78.2 Mixed hyperlipidemia; E11.9 Type 2 diabetes mellitus without complications; K21.9 Gastro-esophageal reflux disease without esophagitis; Z79.01 Long term (current) use of anticoagulants; Z88.1 Allergy status to other antibiotic agents; Z20.822 Contact with and (suspected) exposure to COVID-19
CPT/HCPCS: 36415; 80048; 82947; 85025; 85610; 85730; 93454; C1893; J1644; J2250; J3010; J7040; U0003

== ENCOUNTER 2022-03-31 15:50 | Emergency (ER) | payer BC, OTHER ==
--- OUTSIDE RECORDS SUMMARY | 2022-03-31 16:00 | XMS REPORT | Continuity of Care Document ---
:1955 Author Organization [facility] t Address [address] [place] [address] Care Team Providers Name Role Phone Fiorella Dixon Attending Clinician Unavailable Fiorella Dixon Admitting Clinician Unavailable Payers Payer Name Policy Type Policy Number Effective Date Expiration Date S ource Problems This patient has no known problems. Allergies, Adverse Reactions, Alerts Allergy Allergy Status Severity Reaction(s) Onset Inactive Treating Comm ents Source Name Type Date Date Clinician susi DA Active SV HIVES 2020-02 [facility] line 2-26 Clear 00:00: Damon [address] [place] [address] dimenhyd DA Active SV HIVES 2020-02 [facility] rinate 2-26 Clear 00:00: [address] No Known DA Active U 2020-02 [facility] Allergie 2-23 Clear s 00:00: [address] Medications This patient has no known medications. Procedures Procedure Date / Time Performed Performing Clinician Angela vince [id number] 2021-02-04 00:00:00 CHAAB.01 [facility] [id number] 2021-02-04 00:00:00 CHAAB.01 [facility] [id number] 2021-02-04 00:00:00 CHAAB.01 [facility] [id number] 2021-02-04 00:00:00 CHAAB.01 [facility] [id number] 2021-02-04 00:00:00 CHAAB.01 [facility] [id number] 2021-02-04 00:00:00 CHIOMA.01 [facility] Encounters Start End Encounter Admission Attending Care Care Encounter Source Date/Time Date/Time Type Type Clinicians Facility Department ID 2021-01-31 2021-02-07 Inpatient UR Fiorella Dixon HCACL INTE [id number] [facility] 19:07:00 18:31:00 39 [facility] Results Test Description Test Time Test Comments Results Result Comments Source GLUCOSE BEDSIDE 2021-02-07 17:00:00 Test Item Value Reference Range Interpretation Comme nts GLUCOSE BEDSIDE (test code = 140 MG/DL 70-110 H Performed by certified press operator printing at [facility]) [facility] GLUCOSE [id number] 11:04:00 Test Item Value Reference Range Interpretation Comments GLUCOSE BEDSIDE (test 159 MG/DL 70-110 H Perfor med by certified code = GLUBED) press operator printing at [facility] GLUCOSE [id number] 08:07:00 Test Item Value Reference Range Interpretation Comments GLUCOSE BEDSIDE (test 126 MG/DL 70-110 H Perfor med by certified code = GLUBED) press operator printing at [facility] BASIC METABOLIC [id number] 04:34:00 Test Item Value Reference Range Interpretation Comments SODIUM (test code = NA) 140 mEq/L 134-147 N POTASSIUM (test code = 3.9 mEq/L 3.4-5.0 N K) CHLORIDE (test code = 110 mEq/L 100-108 H CL) CARBON DIOXIDE (test 23 mEq/l 21-33 N code = CO2) ANION GAP (test code = 11 0-20 N GAP) GLUCOSE (test code = 131 mg/dL 70-110 H GLU) BLOOD UREA NITROGEN 15 mg/dL 7-18 N (test code = BUN) GLOMERULAR FILTRATION 113.5 80-90 H Units of measure = RATE (test code = GFR) ml/mi n/1.73 m2 CREATININE (test code = 0.7 mg/dL 0.6-1.3 N CREAT) CALCIUM (test code = 8.6 mg/dL 8.0-10.5 N CA) COMMENTS: POD #1HEPATIC FUNCTION [id number] 04:34:00 Test Item Value Reference Range Interpretation Comments TOTAL PROTEIN (test code = PROT) 5.2 g/dL 6.4-8.2 L ALBUMIN (test code = ALB) 2.80 g/dL 3.4-5.0 L BILIRUBIN TOTAL (test code = BILT) 1.40 mg/dL 0.0-1.0 H BILIRUBIN DIRECT (test code = 0.60 MG/DL 0.0-0.30 H BILD) BILIRUBIN INDIRECT (test code = 0.80 MG/DL BILIND) SGOT/AST (test code = AST) 18 IUnit/L 15-37 N SGPT/ALT (test code = ALT) 15 IUnit/L 30-65 L ALKALINE PHOSPHATASE TOTAL (test 57 IUnit/L 20-125 N code = ALKP) COMMENTS: POD #[id number] 04:34:00 Test Item Value Reference Range Interpretation Comments MAGNESIUM (test code = MAG) 1.71 mg/dL 1.80-2.40 L COMMENTS: POD #1CBC W/AUTO [id number] 04:17:00 Test Item Value Reference Range Interpretation Comments WHITE BLOOD CELL (test code = 9.9 x10 3/uL 4.5-11.0 N WBC) RED BLOOD CELL (test code = 3.13 x10 6/uL 4.00-5.60 L RBC) HEMOGLOBIN (test code = HGB) 8.5 g/dL 12.5-16.9 L HEMATOCRIT (test code = HCT) 25.9 % 37.5-50.7 L MEAN CELL VOLUME (test code = 82.7 fL 81.0-99.0 N MCV) MEAN CELL HGB (test code = MCH) 27.2 pg 27.0-33.0 N MEAN CELL HGB CONCETRATION 32.8 g/dL 33.0-37.0 L (test code = MCHC) RED CELL DISTRIBUTION WIDTH CV 15.6 % 11.5-14.5 H (test code = RDW) RED CELL DISTRIBUTION WIDTH SD 46.5 fL 37.0-54.0 N (test code = RDW-SD) PLATELET COUNT (test code = 105 x10 3/uL 150-400 L PLT) MEAN PLATELET VOLUME (test code 12.4 fL 7.0-9.0 H = MPV) NEUTROPHIL % (test code = NT%) 69.1 % 56.0-77.0 N IMMATURE GRANULOCYTE % (test 0.9 % 0.0-2.0 N code = IG%) LYMPHOCYTE % (test code = LY%) 13.2 % 14.0-32.0 L MONOCYTE % (test code = MO%) 12.6 % 4.8-9.0 H EOSINOPHIL % (test code = EO%) 3.7 % 0.3-3.7 N BASOPHIL % (test code = BA%) 0.5 % 0.0-2.0 N NUCLEATED RBC % (test code = 0.0 % 0-0 N NRBC%) NEUTROPHIL # (test code = NT#) 6.82 x10 3/uL 2.0-7.6 N IMMATURE GRANULOCYTE # (test 0.09 x10 3/uL 0.00-0.03 H code = IG#) LYMPHOCYTE # (test code = LY#) 1.30 x10 3/uL 1.0-3.8 N MONOCYTE # (test code = MO#) 1.24 x10 3/uL 0.1-0.8 H EOSINOPHIL # (test code = EO#) 0.37 x10 3/uL 0.0-0.2 H BASOPHIL # (test code = BA#) 0.05 x10 3/uL 0.0-0.2 N NUCLEATED RBC # (test code = 0.00 x10 3/uL 0.0-0.1 N NRBC#) MANUAL DIFF REQUIRED (test code NO = MDIFF) - SOFT TISSUE [id number] 00:00:00 [facility] 1955 Sex: M [facility]: [facility] 1955 Age/S: 65 / M [address] [place] [address] Bl Unit #: [id number] Loc: [place] [address] Phys: Deep Aguiar NP Acct: [id number] Dis Date: Status: ADM IN PHONE #: [phone] Exam Date: 02/07/2021 0939 FAX #: [phone] Reason: r pl effusion EXAMS: CPT CODE: [id number] US SOFT TISSUE TORSO 42620 PROCEDURE INFORMATION: Exam: US Chest, Pleural Space Exam date and time: 02/07/2021 9:04 AM Age: 65 years old Clinical indication: Condition or disease; Additional info: R pl effusion TECHNIQUE: Imaging protocol: Real time ultrasound of the chest was performed with image documentation. Exam focused on the pleural space. COMPARISON: No relevant prior studies available.FINDINGS: Pleural spaces: Trace left pleural effusion is seen. No drainable right pleural effusion. IMPRESSION: No drainable pleural effusion. at 1129 Reported and signed by: Stefani Bean D.O. CC: Fiorella Dixon MD; Deep Aguiar NP Technologist: Arnie Zavala Trnneb Date/Time: 02/07/2021 (1129) [email or web address] PAGE 1 Signed Report- XR CHEST 1 [id number] 00:00:00 [facility] : 1955 Sex: M FAX: Fiorella Dixon MD [phone] [place]: St: ADM FAX: Deep Aguiar NP Name: CASEY BURCH [facility] : 1955 Age/S: 65/M [address] [place] [address] Unit #: [id number] Loc: G.[address] [place] [address] Phys: Deep Aguiar NP ct: [id number] Dis Date: Status: ADM IN PHONE #: [phone] Exam Date: 02/07/2021512 FAX #: [phone] Reason: Cardiac Surgery Post Op EXAMS: CPT CODE: [id number] XR CHEST 1 V 93540 PROCEDURE INFORMATION: Exam: XR Chest Exam date and time: 02/07/2021 4:23 AM Age: 65 years old Clinical indication: Other: Post op; Additional info: Cardiac surgery post op TECHNIQUE: Imaging protocol: XR of the chest. Views: 1 view. COMPARISON: CR XR CHEST 1V 02/06/2021 4:23 AM FINDINGS: Lungs: Improved aerationin the left lung base. Persistent bilateral lower lung atelectatic changes. Pleural spaces: No pleural effusion. No pneumothorax. Heart/Mediastinum: Cardiomediastinal silhouette is stable. Bones/joints: Osseous structures are unchanged. Sternotomy wires present. IMPRESSION: 1. Improved aeration in the left lung base. at 0804 Reported and signed by: Donald Gomez M.D. CC: Fiorella Dixon MD; Deep Aguiar NP Technologist: Ander Wilcox RT(R); RT Garriosn(R) Trnscrd Date/Time/By: 02/07/2021 (803) : By: [email or web address] Orig Print D/T: S: 02/07/2021 (803) PAGE 1 Signed Report- MRI BRAIN W/O CONT 2021-02-07 00:00:00 [facility] : 1955 Sex: M FAX: Jimbo Rea [phone] [place]: St: [facility] FAX: Fiorella Dixon MD [phone] Name: CASEY BURCH [facility] : 1955 Age/S: 65/M [address] [place] [address] Unit #: [id number] Loc: G.[address] [place] [address] Phys: Jimbo [place] MD Acct: [id number] Dis Date: Status: ADM IN PHONE #: [phone] Exam Date: 02/07/2021 0854 FAX #: [phone] Reason: R visual field defect Report Has Been Amended EXAMS: CPT CODE: [id number] MRI BRAIN W/O CONT 63673 Addendum - 02/07/2021 SIGNED 02/07/2021 ADDENDUM: [id number] MRI/MRIBRAINWO Images and report were reviewed per request. Small focus of diffusion abnormality on B 1000 image in left parietal lobe (series 6, image 13) is associated with slight drop in signal abnormality on ADC map (series 600, image 22). Such combination of findings suggest late acute or early subacute infarction, and less consistent with remote or chronic infarction. at 1302 Reported and signed by: Moises Roger M.D. Report PROCEDURE INFORMATION: Exam: MR Head Without Contrast Exam date and time: 02/07/2021 8:39 AM Age: 65 years old Clinical indication: Other: R visual field defect TECHNIQUE: Imaging protocol: MR ofthe head without contrast. COMPARISON: CT HEAD/BRAIN W/O CONT 02/05/2021 4:55 AM FINDINGS: Suboptimal image quality due to motion artifacts in several sequences. Brain is morphologically unremarkable in appearance. No obvious abnormality along corpus callosum. No focal mass nor midline shift is identified. No abnormal cerebellar tonsillar herniation in foramen magnum. A tiny focus of highly restricted diffusion near hdz-white junction of posterior left parietal lobe. This finding is associated with very subtle T2 and FLAIR hyperintensities.. No hemosiderin deposition is seen in brain. Ventriclesare midline in position and mildly prominent in caliber, with overlying cortical sulcal widening. Basal cisterns and fissures are patent. Major intracranial arterial vessels near the skull base are patent by spin echo criteria. Orbits are unremarkable in appearance bilaterally. No mucosal PAGE 1 Signed Report (CONTINUED) FAX: Jimbo [place] [phone] [place]: St: [facility] FAX: Fiorella Dixon MD [phone] Name: BURCHCASEY Granados [facility] : 1955 Age/S: 65/M [address] [place] [address] Unit #: [id number] Loc: [address] [address] Phys: Jimbo [place] MD Acct: [id number] Dis Date: Status: ADM IN PHONE #: [phone] Exam Date: 02/07/2021 0854 FAX #: [phone] Reason: R visual field defect Report Has Been Amended EXAMS: CPT CODE: [id number] MRI BRAIN W/O CONT 67311 (Continued) inflammation in paranasal sinuses, nasal passages, or nasopharynx. Middle ear cavities and mastoid air cells are patent.. IMPRESSION: Suboptimal study. Tiny focus of acute infarction in left parietal lobe. No focal intracranial mass, midline shift nor hemosiderin deposition. Mild parenchymal atrophy at 0956 Reported and signed by: Moises Roger M.D. CC: Jimbo [place] MD; Fiorella Dixon MD Technologist: Chet Reyes, RT(R)(CT)(MR) Trnscrd Date/Time/By: 02/07/2021 (955) : By: [email or web address] [facility] Print D/T: S: 02/07/2021 (955) PAGE 2 Signed Report- MRA HEAD W/O [id number] 00:00:00 [facility] : 1955 Sex: M FAX: Jimbo Bowers [phone] [place]: St: [facility] FAX: Fiorella Dixon MD [phone] Name: CASEY BURCH [facility] : 1955 Age/S: 65/M [address] [place] [address] Blvd Unit #: [id number] Loc: G.[address] [place] [address] Phys: Jimbo [place] MD Acct: [id number] Dis Date: Status: ADM IN PHONE #: [phone] Exam Date: 02/07/202154 FAX #: [phone] Reason: R visual field defect EXAMS: CPT CODE: [id number] MRA HEAD W/O CONTRAST 78079 PROCEDURE INFORMATION: Exam: MRA Head Without Contrast; Arteriography Exam date andtime: 02/07/2021 8:39 AM Age: 65 years old Clinical indication: Other: R visual field defect TECHNIQUE: Imaging protocol: Magnetic resonance angiography head without contrast. Exam focused on the arteries. COMPARISON: CT HEAD/BRAIN W/O CONT 02/05/2021 4:55 AM FINDINGS: ANTERIOR CIRCULATION: Right internal carotid artery: Intracranial segment is patent with no significant stenosis. No aneurysm. Rightmiddle cerebral artery: No occlusion or significant stenosis. No aneurysm. Right anterior cerebral artery: No occlusion or significant stenosis. No aneurysm. Left internal carotid artery: Intracranial segment is patent with no significant stenosis. No aneurysm. Left middle cerebral artery: No occlusion or significant stenosis. No aneurysm. Left anterior cerebral artery: No occlusion or significant stenosis. No aneurysm. POSTERIOR CIRCULATION: Right vertebral artery: No occlusion or significant stenosis. No aneurysm. Left vertebral artery: No occlusion or significant stenosis. No aneurysm. Basilar artery: No occlusion or significant stenosis. No aneurysm. Right posterior cerebral artery: No occlusion or significant stenosis. No aneurysm. Left posterior cerebral artery: No occlusion or significant stenosis. No aneurysm. IMPRESSION: No stenosis or occlusion. at 1052 Reported and signed by: Sha Hutchins M.D. PAGE 1 Signed Report (CONTINUED) FAX: Jimbo [place] [phone] [place]: St: [facility] FAX: Fiorella Dixon MD [phone] -------- Name: CASEY BURCH [facility] : 1955 Age/S: 65/M [address] [place] [address] Blvd Unit #: [id number] Loc: [address] [place] [address] Phys: Jimbo [place] MD Acct: [id number] Dis Date: Status: ADM IN PHONE #: [phone] Exam Date: 02/07/2021 0854 FAX #: [phone] Reason: R visual field defect EXAMS: CPT CODE: [id number] MRA HEAD W/O CONTRAST 35644 (Continued) CC: Jimbo [place] MD; Fiorella Dixon MD Technologist: Chet Reyes, RT(R)(CT)(MR) Trnscrd Date/Time/By: 02/07/2021 (1052) : By: [email or web address] Orig Print D/T: S: 02/07/2021 (1053) PAGE 2 Signed ReportGLUCOSE [id number] 16:43:00 Test Item Value Reference Range Interpretation Comments GLUCOSE BEDSIDE (test 125 MG/DL 70-110 H Perfor med by certified code = GLUBED) press operator printing at [facility] GLUCOSE [id number] 12:10:00 Test Item Value Reference Range Interpretation Comments GLUCOSE BEDSIDE (test 143 MG/DL 70-110 H Perfor med by certified code = GLUBED) press operator printing at [facility] GLUCOSE [id number] 07:49:00 Test Item Value Reference Range Interpretation Comments GLUCOSE BEDSIDE (test 124 MG/DL 70-110 H Perfor med by certified code = GLUBED) press operator printing at [facility] BASIC METABOLIC [id number] 03:40:00 Test Item Value Reference Range Interpretation Comments SODIUM (test code = NA) 138 mEq/L 134-147 N POTASSIUM (test code = 3.9 mEq/L 3.4-5.0 N K) CHLORIDE (test code = 107 mEq/L 100-108 CL) CARBON DIOXIDE (test 23 mEq/l 21-33 N code = CO2) ANION GAP (test code = 12 0-20 N GAP) GLUCOSE (test code = 147 mg/dL 70-110 H GLU) BLOOD UREA NITROGEN 13 mg/dL 7-18 N (test code = BUN) GLOMERULAR FILTRATION 85.0 80-90 N Units of measure = RATE (test code = GFR) ml/mi n/1.73 m2 CREATININE (test code = 0.9 mg/dL 0.6-1.3 N CREAT) CALCIUM (test code = 8.7 mg/dL 8.0-10.5 N CA) COMMENTS: POD #1HEPATIC FUNCTION [id number] 03:40:00 Test Item Value Reference Range Interpretation Comments TOTAL PROTEIN (test code = PROT) 5.9 g/dL 6.4-8.2 L ALBUMIN (test code = ALB) 3.50 g/dL 3.4-5.0 N BILIRUBIN TOTAL (test code = BILT) 2.30 mg/dL 0.0-1.0 H BILIRUBIN DIRECT (test code = 0.80 MG/DL 0.0-0.30 H BILD) BILIRUBIN INDIRECT (test code = 1.50 MG/DL BILIND) SGOT/AST (test code = AST) 27 IUnit/L 15-37 N SGPT/ALT (test code = ALT) 16 IUnit/L 30-65 L ALKALINE PHOSPHATASE TOTAL (test 61 IUnit/L 20-125 N code = ALKP) COMMENTS: POD #[id number] 03:40:00 Test Item Value Reference Range Interpretation Comments MAGNESIUM (test code = MAG) 1.88 mg/dL 1.80-2.40 COMMENTS: POD #1CBC W/AUTO [id number] 03:18:00 Test Item Value Reference Range Interpretation Comments WHITE BLOOD CELL (test code = 12.8 x10 3/uL 4.5-11.0 H WBC) RED BLOOD CELL (test code = 3.63 x10 6/uL 4.00-5.60 L RBC) HEMOGLOBIN (test code = HGB) 10.0 g/dL 12.5-16.9 L HEMATOCRIT (test code = HCT) 30.3 % 37.5-50.7 L MEAN CELL VOLUME (test code = 83.5 fL 81.0-99.0 N MCV) MEAN CELL HGB (test code = MCH) 27.5 pg 27.0-33.0 N MEAN CELL HGB CONCETRATION 33.0 g/dL 33.0-37.0 N (test code = MCHC) RED CELL DISTRIBUTION WIDTH CV 15.6 % 11.5-14.5 H (test code = RDW) RED CELL DISTRIBUTION WIDTH SD 47.0 fL 37.0-54.0 N (test code = RDW-SD) PLATELET COUNT (test code = 121 x10 3/uL 150-400 L PLT) MEAN PLATELET VOLUME (test code 12.6 fL 7.0-9.0 H = MPV) NEUTROPHIL % (test code = NT%) 73.8 % 56.0-77.0 N IMMATURE GRANULOCYTE % (test 0.8 % 0.0-2.0 N code = IG%) LYMPHOCYTE % (test code = LY%) 9.6 % 14.0-32.0 L MONOCYTE % (test code = MO%) 14.1 % 4.8-9.0 H EOSINOPHIL % (test code = EO%) 1.2 % 0.3-3.7 N BASOPHIL % (test code = BA%) 0.5 % 0.0-2.0 N NUCLEATED RBC % (test code = 0.0 % 0-0 N NRBC%) NEUTROPHIL # (test code = NT#) 9.46 x10 3/uL 2.0-7.6 H IMMATURE GRANULOCYTE # (test 0.10 x10 3/uL 0.00-0.03 H code = IG#) LYMPHOCYTE # (test code = LY#) 1.23 x10 3/uL 1.0-3.8 N MONOCYTE # (test code = MO#) 1.80 x10 3/uL 0.1-0.8 H EOSINOPHIL # (test code = EO#) 0.15 x10 3/uL 0.0-0.2 N BASOPHIL # (test code = BA#) 0.06 x10 3/uL 0.0-0.2 N NUCLEATED RBC # (test code = 0.00 x10 3/uL 0.0-0.1 N NRBC#) MANUAL DIFF REQUIRED (test code NO = MDIFF) - DUP VEIN [id number] 00:00:00 [facility] 1955 Sex: M Name: CASEY BURCH [facility] [place] : 1955 Age/S: 65 / M [address] [place] [address] Blvd Unit #: [id number] Loc: [place] [address] Phys: Deep Aguiar [employer]IC [employer] S[employer]OGRAPHER Acct: [id number] Dis Date: Status: ADM IN PHONE #: [phone] Exam Date: 02/06/2021 1312 FAX #: [phone] Reason: r/o DVT EXAMS: CPT CODE: [id number] DUP VEIN DONAVAN 43367 PROCEDURE INFORMATION: Exam: US Duplex Lower Extremity Veins, Bilateral Exam date and time: 02/06/2021 11:54 AM Age: 65 years old Clinical indication: Screening exam; S/P cabg; Additional info: R/O dvt TECHNIQUE: Imaging protocol: Real-time duplex ultrasound of the extremities with 2-D hdz scale, color Doppler flow and spectral waveform analysis with image documentation. Complete exam focused on the bilateral lower extremity veins. COMPARISON: US DUP VEIN DONAVAN 02/01/2021 3:19 PM FINDINGS: Right deep veins: The common femoral, femoral, proximal profunda femoral and popliteal veins are patent without thrombus. Normal Doppler waveforms. Normal compressibility and/or augmentation response. Right superficial veins: Thrombus is present along the visualized right great saphenous vein.Left deep veins: The common femoral, femoral, proximal profunda femoral and popliteal veins are patent without thrombus. Normal Doppler waveforms. Normal compressibility and/or augmentation response. Left superficial veins: Saphenofemoral junction is patent without thrombus. Soft tissues: Diffuse bilateral leg swelling and edema. IMPRESSION: 1. No evidence of deep vein thrombosis. 2. Thrombus is present along the visualized right great saphenous vein. at 1331 Reported and signed by: Troy Telles M.D. CC: Fiorella [place] MD; Deep mchugh NP Technologist: Samantha Marie RDMS(AB) Trnscb Date/Time: 02/06/2021 (1330) [email or web address] Orig Print D/T: S: 02/06/2021 (1330) Probe: PAGE 1 Signed Report- XR CHEST 1 [id number] 00:00:00 [facility] 1955 Sex: M FAX: Fiorella Dixon MD [phone] [place]: St: [facility] FAX: Deep Aguiar NP Name: CASEY BURCH [facility] : 1955 Age/S: 65/M [address] [place] [address] Unit #: [id number] Loc: G.[address] [place] [address] Phys: Deep Aguiar NP A cct: [id number] Dis Date: Status: ADM IN PHONE #: [phone] Exam Date: 02/06/2021525 FAX #: [phone] Reason: Cardiac Surgery Post Op EXAMS: CPT CODE: [id number] XR CHEST 1 V 49977 PROCEDURE INFORMATION: Exam: XR Chest Exam date and time: 02/06/2021 4:23 AM Age: 65 years old Clinical indication: Other: Post op; Additional info: Cardiac surgery post op TECHNIQUE: Imaging protocol: XR of the chest. Views: 1 view. COMPARISON: CR XR CHEST 1V 02/05/2021 4:48 AM FINDINGS: Tubes, catheters and devices: The left-sided chest tube has been removed. Otherwise, the life support lines and tubes appearunchanged. Lungs: Left retrocardiac opacity, representing any combination of atelectasis, consolidation, or layering pleural effusion. Pleural spaces: Small left pleural effusion. 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 Postoperative changes from coronary artery bypass grafting are seen. The heart size is at the upper limits of normal. Bones/joints: Unre markable. IMPRESSION: 1. Small left pleural effusion 2. Left retrocardiac opacity, representing any combination of atelectasis, consolidation, or layering pleural effusion. at 0738 Reported and signed by: Sha Hutchins M.D. CC: Fiorella [place] MD; Deep Aguiar NP Technologist: Ander Wilcox RT(R); RT Tanika(R) [facility] Date/Time/By: 02/06/2021 (0738) : By: [email or web address] Orig Print D/T: S: 02/06/2021 (0753) PAGE 1 Signed ReportGLUCOSE [id number] 19:25:00 Test Item Value Reference Range Interpretation Comments GLUCOSE BEDSIDE (test 141 MG/DL 70-110 H Perfor med by certified code = GLUBED) press operator printing at [facility] GLUCOSE [id number] 16:17:00 Test Item Value Reference Range Interpretation Comments GLUCOSE BEDSIDE (test 137 MG/DL 70-110 H Perfor med by certified code = GLUBED) press operator printing at [facility] GLUCOSE [id number] 11:31:00 Test Item Value Reference Range Interpretation Comments GLUCOSE BEDSIDE (test 181 MG/DL 70-110 H Perfor med by certified code = GLUBED) press operator printing at [facility] GLUCOSE [id number] 08:18:00 Test Item Value Reference Range Interpretation Comments GLUCOSE BEDSIDE (test 175 MG/DL 70-110 H Perfor med by certified code = GLUBED) press operator printing at [facility] GLUCOSE [id number] 06:40:00 Test Item Value Reference Range Interpretation Comments GLUCOSE BEDSIDE (test 142 MG/DL 70-110 H Perfor med by certified code = GLUBED) press operator printing at [facility] BASIC METABOLIC [id number] 04:46:00 Test Item Value Reference Range Interpretation Comments SODIUM (test code = NA) 140 mEq/L 134-147 N POTASSIUM (test code = 4.3 mEq/L 3.4-5.0 N K) CHLORIDE (test code = 113 mEq/L 100-108 H CL) CARBON DIOXIDE (test 20 mEq/l 21-33 L code = CO2) ANION GAP (test code = 12 0-20 N GAP) GLUCOSE (test code = 156 mg/dL 70-110 H GLU) BLOOD UREA NITROGEN 11 mg/dL 7-18 N (test code = BUN) GLOMERULAR FILTRATION 85.0 80-90 N Units of measure = RATE (test code = GFR) ml/mi n/1.73 m2 CREATININE (test code = 0.9 mg/dL 0.6-1.3 N CREAT) CALCIUM (test code = 8.2 mg/dL 8.0-10.5 N CA) COMMENTS: POD #1HEPATIC FUNCTION [id number] 04:46:00 Test Item Value Reference Range Interpretation Comments TOTAL PROTEIN (test code = PROT) 5.0 g/dL 6.4-8.2 L ALBUMIN (test code = ALB) 3.30 g/dL 3.4-5.0 L BILIRUBIN TOTAL (test code = BILT) 1.90 mg/dL 0.0-1.0 H BILIRUBIN DIRECT (test code = 0.80 MG/DL 0.0-0.30 H BILD) BILIRUBIN INDIRECT (test code = 1.10 MG/DL BILIND) SGOT/AST (test code = AST) 37 IUnit/L 15-37 SGPT/ALT (test code = ALT) 20 IUnit/L 30-65 L ALKALINE PHOSPHATASE TOTAL (test 52 IUnit/L 20-125 N code = ALKP) COMMENTS: POD #[id number] 04:46:00 Test Item Value Reference Range Interpretation Comments MAGNESIUM (test code = MAG) 1.52 mg/dL 1.80-2.40 L COMMENTS: POD #[id number] 04:39:00 Test Item Value Reference Range Interpretation Comments LACTIC ACID (test code = LACT) 0.8 mmol/L 0.4-1.9 N CBC W/AUTO [id number] 04:30:00 Test Item Value Reference Range Interpretation Comments WHITE BLOOD CELL (test code = 10.8 x10 3/uL 4.5-11.0 N WBC) RED BLOOD CELL (test code = 3.71 x10 6/uL 4.00-5.60 L RBC) HEMOGLOBIN (test code = HGB) 10.1 g/dL 12.5-16.9 L HEMATOCRIT (test code = HCT) 30.8 % 37.5-50.7 L MEAN CELL VOLUME (test code = 83.0 fL 81.0-99.0 N MCV) MEAN CELL HGB (test code = MCH) 27.2 pg 27.0-33.0 N MEAN CELL HGB CONCETRATION 32.8 g/dL 33.0-37.0 L (test code = MCHC) RED CELL DISTRIBUTION WIDTH CV 15.8 % 11.5-14.5 H (test code = RDW) RED CELL DISTRIBUTION WIDTH SD 47.5 fL 37.0-54.0 N (test code = RDW-SD) PLATELET COUNT (test code = 123 x10 3/uL 150-400 L PLT) MEAN PLATELET VOLUME (test code 12.6 fL 7.0-9.0 H = MPV) NEUTROPHIL % (test code = NT%) 75.6 % 56.0-77.0 N IMMATURE GRANULOCYTE % (test 0.8 % 0.0-2.0 N code = IG%) LYMPHOCYTE % (test code = LY%) 9.3 % 14.0-32.0 L MONOCYTE % (test code = MO%) 13.0 % 4.8-9.0 H EOSINOPHIL % (test code = EO%) 0.7 % 0.3-3.7 N BASOPHIL % (test code = BA%) 0.6 % 0.0-2.0 N NUCLEATED RBC % (test code = 0.0 % 0-0 N NRBC%) NEUTROPHIL # (test code = NT#) 8.13 x10 3/uL 2.0-7.6 H IMMATURE GRANULOCYTE # (test 0.09 x10 3/uL 0.00-0.03 H code = IG#) LYMPHOCYTE # (test code = LY#) 1.00 x10 3/uL 1.0-3.8 N MONOCYTE # (test code = MO#) 1.40 x10 3/uL 0.1-0.8 H EOSINOPHIL # (test code = EO#) 0.08 x10 3/uL 0.0-0.2 N BASOPHIL # (test code = BA#) 0.06 x10 3/uL 0.0-0.2 N NUCLEATED RBC # (test code = 0.00 x10 3/uL 0.0-0.1 N NRBC#) MANUAL DIFF REQUIRED (test code NO = MDIFF) POC ARTERIAL BLOOD [id number] 04:24:00 Test Item Value Reference Range Interpretation Comments POC ARTERIAL BLOOD GAS PH (test 7.407 7.35-7.45 N code = POCPHA) POC ARTERIAL BLOOD GAS PCO2 (test 28.5 mmHg 35.0-45 LL code = [id number]) POC TCO2 ARTERIAL (test code = 18.6 POCTCO2) POC ARTERIAL BLOOD GAS PO2 (test 71.8 mmHg 80-100.0 L code = CHXRC4H) POC HCO3 ARTERIAL (test code = 17.7 MMOL/L 22.0-26.0 LL VIWSCU1W) POC BASE EXCESS (test code = -6.7 MMOL/L -4.0-4.0 L POCBEA) POC O2 SATURATION (test code = 93.6 % 90-100 N POCO2S) ABG TEMPERATURE (test code = 100.8 F TEMPA) ABG SITE (test code = SITEA) Art Line BASIC METABOLIC [id number] 04:24:00 Test Item Value Reference Range Interpretation Comments SODIUM (test code = NA/ABG) 139 MEQ/L 134-147 N POTASSIUM (test code = K/ABG) 4.2 MEQ/L 3.4-5.0 N CHLORIDE (test code = CL/ABG) 109 MEQ/L 100-108 H CREATININE ABG (test code = 0.9 mg/dL 0.8-1.3 N CREAABG) POC IONIZED CALCIUM (test code = 1.18 MMOL/L 1.12-1.32 N POCCA) POC GLUCOSE (test code = POCGLU) 154 MG/DL HEMOGLOBIN [id number] 04:24:00 Test Item Value Reference Range Interpretation Comments HEMOGLOBIN ABG (test code = HGB/ABG) 9.3 G/DL 12.5-16.9 L [id number] 04:24:00 Test Item Value Reference Range Interpretation Comments HEMATOCRIT (test code = HCT/ABG) 27 % 37.5-50.7 L POC LACTIC [id number] 04:24:00 Test Item Value Reference Range Interpretation Comments POC LACTIC ACID (test code = 0.9 mmol/l 0.9-1.7 N POCLAC) - CT HEAD/BRAIN W/O [id number] 00:00:00 [facility] 1955 Sex: M Name: CASEY BURCH [facility] : 1955 Age/S: 65 / M [address] [place] [address] Unit #: [id number] Loc: [place] [address] Phys: Karri Fine MD Acct: [id number] Dis Date: Status: ADM IN PHONE #: [phone] Exam Date: 02/05/2021756 FAX #: [phone] Reason: EVAL VISION DISTURBANCE EXAMS: CPT CODE: [id number] CT HEAD/BRAIN W/O CONT [id number] PROCEDURE INFORMATION: Exam: CT Head Without Contrast Exam date and time: 02/05/2021 4:55 AM Age: 65 years old Clinical indication: Visual disturbance; Additional info: Eval vision disturbance TECHNIQUE: Imaging protocol: Computed tomography of the head without contrast. Radiation optimization: All CT scans at this facility use at least one of these dose op timization techniques: automated exposure control; mA and/or kV adjustment per patient size (includes targeted exams where dose is matched to clinical indication); or iterative reconstruction. COMPARISON: None FINDINGS: Brain: There is no evidence of acute vascular insults, hemorrhage, space occupying lesions, midline shift, or extra-axial fluid collections. Cerebral ventricles: No ventriculomegaly. Paranasal sinuses: Visualized sinuses are unremarkable. No fluid levels. Mastoid air cells: The mastoid air cells and middle ear cavities are grossly clear. Bones/joints: The calvarium is intact. Soft tissues: Unremarkable. IMPRESSION: No acute intracranial abnormalities are visualized. at 0533 Reported and signed by: Medhat Roberts M.D. CC: Fiorella Dixon MD; Karri Fine MD Technologist:RT Chris(R)(CT) CTDI: DLP: Trnscb Date/Time: 02/05/2021 (0533) t.[email or web address] Orig Print D/T: S: 02/05/2021 (0758) PAGE 1 Signed Report- XR CHEST 1 [id number] 00:00:00 [facility] 1955 Sex: M FAX: Fiorella Dixon MD [phone] [place]: St: [facility] FAX: Deep Aguiar [employer] SONOGR[employer]HER Name: CASEY BURCH [facility] Maddy Damon : 1955 Age/S: 65/M [address] [place] [address] Unit #: [id number] Loc: [address] [address] Phys: Deep Aguiar NP A cct: [id number] Dis Date: Status: ADM IN PHONE #: [phone] Exam Date: 02/05/2021 0536 FAX #: [phone] Reason: Cardiac Surgery Post Op EXAMS: CPT CODE: [id number] XR CHEST 1 V 46405 PROCEDURE INFORMATION: Exam: XR Chest Exam date and time: 02/05/2021 4:48 AM Age: 65 years old Clinical indication: Other: Post op; Additional info: Cardiac surgery post op TECHNIQUE: Imaging protocol: XR of critical access hospital. Views: 1 view. COMPARISON: CR XR CHEST 1V 02/04/2021 11:46 AM FINDINGS: Tubes, catheters and devices: Patient has been extubated. Otherwise, the life support lines and tubes appear unchanged. Lungs: Left retrocardiac opacity, representing any combination of atelectasis, consolidation, or layering pleural effusion. Central pulmonary vascular congestion is present. Pleural spaces: Small bilateral pleural effusions. 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 Bones/joints: Mild spondylosis and facet arthropathy in the spine. IMPRESSION: 1. Small bilateral pleural effusions. 2. Left retrocardiac opacity, representing any combination of atelectasis, consolidation, or layering pleural effusion. at 0737 Reported and signed by: Sha Hutchins M.D. CC: Fiorella Dixon MD; Deep Aguiar NP Technologist: Ander Wilcox, RT(R); Alexa Brooks RT(R) Trnscrd Date/Time/By: 02/05/2021 (0737) : By: [email or web address] Orig Print D/T: S: 02/05/2021 (7684) PAGE 1 Signed ReportGLUCOSE [id number] 21:26:00 Test Item Value Reference Range Interpretation Comments GLUCOSE BEDSIDE (test 122 MG/DL 70-110 H Perfor med by certified code = GLUBED) press operator printing at [facility] GLUCOSE [id number] 17:25:00 Test Item Value Reference Range Interpretation Comments GLUCOSE BEDSIDE (test 115 MG/DL 70-110 H Perfor med by certified code = GLUBED) press operator printing at [facility] POC ARTERIAL BLOOD [id number] 16:23:00 Test Item Value Reference Range Interpretation Comments POC ARTERIAL BLOOD GAS PH (test 7.340 7.35-7.45 L code = POCPHA) POC ARTERIAL BLOOD GAS PCO2 (test 40.5 mmHg 35.0-45 N code = TZQUYT7Q) POC TCO2 ARTERIAL (test code = 23.1 POCTCO2) POC ARTERIAL BLOOD GAS PO2 (test 141.0 mmHg 80-100.0 H code = AIOXI6V) POC HCO3 ARTERIAL (test code = 21.8 MMOL/L 22.0-26.0 L PQNRSF0L) POC BASE EXCESS (test code = -3.9 MMOL/L -4.0-4.0 N POCBEA) POC O2 SATURATION (test code = 99.0 % 90-100 N POCO2S) ABG DELIVERY (test code = YIN) Cannula ABG SITE (test code = SITEA) Art Line BASIC METABOLIC [id number] 16:23:00 Test Item Value Reference Range Interpretation Comments SODIUM (test code = NA/ABG) 143 MEQ/L 134-147 N POTASSIUM (test code = K/ABG) 4.2 MEQ/L 3.4-5.0 N CHLORIDE (test code = CL/ABG) 112 MEQ/L 100-108 H CREATININE ABG (test code = 0.9 mg/dL 0.8-1.3 N CREAABG) POC IONIZED CALCIUM (test code = 1.26 MMOL/L 1.12-1.32 N POCCA) POC GLUCOSE (test code = POCGLU) 121 MG/DL HEMOGLOBIN [id number] 16:23:00 Test Item Value Reference Range Interpretation Comments HEMOGLOBIN ABG (test code = HGB/ABG) 9.5 G/DL 12.5-16.9 L [id number] 16:23:00 Test Item Value Reference Range Interpretation Comments HEMATOCRIT (test code = HCT/ABG) 28 % 37.5-50.7 L POC LACTIC [id number] 16:23:00 Test Item Value Reference Range Interpretation Comments POC LACTIC ACID (test code = 0.6 mmol/l 0.9-1.7 L POCLAC) GLUCOSE [id number] 15:24:00 Test Item Value Reference Range Interpretation Comments GLUCOSE BEDSIDE (test 84 MG/DL 70-110 N [facility] med by certified code = GLUBED) press operator printing at [facility] GLUCOSE [id number] 13:22:00 Test Item Value Reference Range Interpretation Comments GLUCOSE BEDSIDE (test 106 MG/DL 70-110 N [facility] med by certified code = GLUBED) press operator printing at [facility] [id number] 13:14:00 Test Item Value Reference Range Interpretation Comments HEMATOCRIT (test code = HCT/ABG) 27 % 37.5-50.7 L POC LACTIC [id number] 13:14:00 Test Item Value Reference Range Interpretation Comments POC LACTIC ACID (test code = 1.0 mmol/l 0.9-1.7 N POCLAC) POC ARTERIAL BLOOD [id number] 13:14:00 Test Item Value Reference Range Interpretation Comments POC ARTERIAL BLOOD GAS PH (test 7.333 7.35-7.45 L code = POCPHA) POC ARTERIAL BLOOD GAS PCO2 41.6 mmHg 35.0-45 N (test code = SUHCJR0J) POC TCO2 ARTERIAL (test code = 23.3 POCTCO2) POC ARTERIAL BLOOD GAS PO2 (test 107.9 mmHg 80-100.0 H code = MEQDI2G) POC HCO3 ARTERIAL (test code = 22.1 MMOL/L 22.0-26.0 N UCKYGC0P) POC BASE EXCESS (test code = -3.8 MMOL/L -4.0-4.0 N POCBEA) POC O2 SATURATION (test code = 97.8 % 90-100 N POCO2S) FIO2 (test code = FIO2A) 40 % PaO2/FiO2 (test code = [id number]) 269.75 mm/Hg ABG DELIVERY (test code = YIN) ET Tube ABG VENT MODE (test code = CPAP/PS MODEA) ABG PEEP (test code = PEEPA) 6 cmH2O ABG PRESSURE SUPPORT (test code 7 cmH2O = PSABG) ABG SITE (test code = SITEA) Art Line BASIC METABOLIC [id number] 13:14:00 Test Item Value Reference Range Interpretation Comments SODIUM (test code = NA/ABG) 143 MEQ/L 134-147 N POTASSIUM (test code = K/ABG) 3.8 MEQ/L 3.4-5.0 N CHLORIDE (test code = CL/ABG) 109 MEQ/L 100-108 H CREATININE ABG (test code = 0.9 mg/dL 0.8-1.3 N CREAABG) POC IONIZED CALCIUM (test code = 1.27 MMOL/L 1.12-1.32 N POCCA) POC GLUCOSE (test code = POCGLU) 118 MG/DL HEMOGLOBIN [id number] 13:14:00 Test Item Value Reference Range Interpretation Comments HEMOGLOBIN ABG (test code = HGB/ABG) 9.2 G/DL 12.5-16.9 L PROTHROMBIN [id number] 13:10:00 Test Item Value Reference Range Interpretation Comments PROTHROMBIN TIME 14.3 SECONDS 9.3-12.9 H PATIENT (test code = PTP) INTERNATIONAL NORMAL 1.3 0.8-1.2 H TARGET INR BY RATIO (test code = INDICATIO N Indication INR) INR1. Prophylax is of venous thrombos is 2.0 - 3.0 (orthoped ic surgery), Proph ylaxis of venous throm bosis (other than hig h-risk surgery), Treat ment of Deep Vein Thrombosis/Pulm onary Embolism, Preve ntion of systemic emb olism - Tissue heart va lves, Acute Myocardia l Infarction (to prevent systemic emboli sm), Valvular heart disease, Atrial Fibrillation, Bileaflet mecha nical valve in aortic position.2. Mec hanical prosthetic valv es (high risk), 2. 5 - 3.5 Presence of Lup us Anticoagulant o r Antiphospholipi d Antibodies, Pre vention of systemic emb olism - Acute Myocardia l Infarction (to prevent recurrent infar ct). COMMENTS: On arrivalTHROMBOPLASTIN TIME [id number] 13:10:00 Test Item Value Reference Range Interpretation Comments THROMBOPLASTIN TIME 27.5 Seconds 25.0-39.5 Therape utic Range: PARTIAL (test code = 50.4 - 88.3 Seconds PTT) Effective 05/25/2018 COMMENTS: On arrivalBASIC METABOLIC [id number] 13:03:00 Test Item Value Reference Range Interpretation Comments SODIUM (test code = NA) 143 mEq/L 134-147 N POTASSIUM (test code = 4.1 mEq/L 3.4-5.0 N K) CHLORIDE (test code = 115 mEq/L 100-108 H CL) CARBON DIOXIDE (test 22 mEq/l 21-33 N code = CO2) ANION GAP (test code = 10 0-20 N GAP) GLUCOSE (test code = 124 mg/dL 70-110 H GLU) BLOOD UREA NITROGEN 14 mg/dL 7-18 N (test code = BUN) GLOMERULAR FILTRATION 85.0 80-90 N Units of measure = RATE (test code = GFR) ml/mi n/1.73 m2 CREATININE (test code = 0.9 mg/dL 0.6-1.3 N CREAT) CALCIUM (test code = 8.5 mg/dL 8.0-10.5 N CA) COMMENTS: On [id number] 13:03:00 Test Item Value Reference Range Interpretation Comments MAGNESIUM (test code = MAG) 1.99 mg/dL 1.80-2.40 N COMMENTS: On arrivalLACTIC [id number] 13:01:00 Test Item Value Reference Range Interpretation Comments LACTIC ACID (test code = LACT) 0.9 mmol/L 0.4-1.9 N CBC W/AUTO [id number] 12:59:00 Test Item Value Reference Range Interpretation Comments WHITE BLOOD CELL (test code = 17.6 x10 3/uL 4.5-11.0 H WBC) RED BLOOD CELL (test code = 3.81 x10 6/uL 4.00-5.60 L RBC) HEMOGLOBIN (test code = HGB) 10.2 g/dL 12.5-16.9 L HEMATOCRIT (test code = HCT) 31.5 % 37.5-50.7 L MEAN CELL VOLUME (test code = 82.7 fL 81.0-99.0 N MCV) MEAN CELL HGB (test code = 26.8 pg 27.0-33.0 L MCH) MEAN CELL HGB CONCETRATION 32.4 g/dL 33.0-37.0 L (test code = MCHC) RED CELL DISTRIBUTION WIDTH CV 15.3 % 11.5-14.5 H (test code = RDW) RED CELL DISTRIBUTION WIDTH SD 46.2 fL 37.0-54.0 N (test code = RDW-SD) PLATELET COUNT (test code = 145 x10 3/uL 150-400 L PLT) MEAN PLATELET VOLUME (test 12.6 fL 7.0-9.0 H code = MPV) NEUTROPHIL % (test code = NT%) 70.5 % 56.0-77.0 N IMMATURE GRANULOCYTE % (test 1.0 % 0.0-2.0 N code = IG%) LYMPHOCYTE % (test code = LY%) 17.5 % 14.0-32.0 N MONOCYTE % (test code = MO%) 7.4 % 4.8-9.0 N EOSINOPHIL % (test code = EO%) 3.0 % 0.3-3.7 N BASOPHIL % (test code = BA%) 0.6 % 0.0-2.0 N NUCLEATED RBC % (test code = 0.0 % 0-0 N NRBC%) NEUTROPHIL # (test code = NT#) 12.38 x10 3/uL 2.0-7.6 H IMMATURE GRANULOCYTE # (test 0.18 x10 3/uL 0.00-0.03 H code = IG#) LYMPHOCYTE # (test code = LY#) 3.08 x10 3/uL 1.0-3.8 N MONOCYTE # (test code = MO#) 1.30 x10 3/uL 0.1-0.8 H EOSINOPHIL # (test code = EO#) 0.52 x10 3/uL 0.0-0.2 H BASOPHIL # (test code = BA#) 0.11 x10 3/uL 0.0-0.2 N NUCLEATED RBC # (test code = 0.00 x10 3/uL 0.0-0.1 N NRBC#) MANUAL DIFF REQUIRED (test NO code = MDIFF) [facility] [id number] 12:17:00 Test Item Value Reference Range Interpretation Comments POC ARTERIAL BLOOD GAS PH (test 7.367 7.35-7.45 N code = POCPHA) POC ARTERIAL BLOOD GAS PCO2 39.6 mmHg 35.0-45 N (test code = FYNQJT2C) POC TCO2 ARTERIAL (test code = 24.3 POCTCO2) POC ARTERIAL BLOOD GAS PO2 (test 234.9 mmHg 80-100.0 HH code = EDAMO2Z) POC HCO3 ARTERIAL (test code = 23.0 MMOL/L 22.0-26.0 N FDWHES1V) POC BASE EXCESS (test code = -2.6 MMOL/L -4.0-4.0 N POCBEA) POC O2 SATURATION (test code = 99.8 % 90-100 N POCO2S) FIO2 (test code = FIO2A) 70 % PaO2/FiO2 (test code = [id number]) 335.57 mm/Hg ABG DELIVERY (test code = YIN) Adult Vent ABG VENT MODE (test code = AC MODEA) ABG VENT RESP RATE (test code = 17 /MIN RRA) ABG TIDAL VOLUME (test code = 480 ml TVA) ABG TEMPERATURE (test code = 96.3 F TEMPA) ABG SITE (test code = SITEA) L Radial BASIC METABOLIC [id number] 12:17:00 Test Item Value Reference Range Interpretation Comments SODIUM (test code = NA/ABG) 142 MEQ/L 134-147 N POTASSIUM (test code = K/ABG) 4.1 MEQ/L 3.4-5.0 N CHLORIDE (test code = CL/ABG) 109 MEQ/L 100-108 H CREATININE ABG (test code = 1.0 mg/dL 0.8-1.3 N CREAABG) POC IONIZED CALCIUM (test code = 1.30 MMOL/L 1.12-1.32 N POCCA) POC GLUCOSE (test code = POCGLU) 112 MG/DL HEMOGLOBIN [id number] 12:17:00 Test Item Value Reference Range Interpretation Comments HEMOGLOBIN ABG (test code = HGB/ABG) 9.2 G/DL 12.5-16.9 L [id number] 12:17:00 Test Item Value Reference Range Interpretation Comments HEMATOCRIT (test code = HCT/ABG) 27 % 37.5-50.7 L POC LACTIC [id number] 12:17:00 Test Item Value Reference Range Interpretation Comments POC LACTIC ACID (test code = 0.8 mmol/l 0.9-1.7 L POCLAC) [id number] 10:36:00 Test Item Value Reference Range Interpretation Comments ACT-ISTAT (test code 124 SEC 74-137 N Perform ed by certified = ACTI) press operator printing at [facility] POC ARTERIAL BLOOD [id number] 10:28:00 Test Item Value Reference Range Interpretation Comments POC ARTERIAL BLOOD GAS PH (test 7.417 7.35-7.45 N code = POCPHA) POC ARTERIAL BLOOD GAS PCO2 (test 33.2 mmHg 35.0-45 L code = MKBKGN2R) POC TCO2 ARTERIAL (test code = 22.4 POCTCO2) POC ARTERIAL BLOOD GAS PO2 (test 191.4 mmHg 80-100.0 H code = RNNTM3H) POC HCO3 ARTERIAL (test code = 21.4 MMOL/L 22.0-26.0 L [id number]) POC BASE EXCESS (test code = -2.8 MMOL/L -4.0-4.0 N POCBEA) POC O2 SATURATION (test code = 99.7 % 90-100 N POCO2S) BASIC METABOLIC [id number] 10:28:00 Test Item Value Reference Range Interpretation Comments SODIUM (test code = NA/ABG) 141 MEQ/L 134-147 N POTASSIUM (test code = K/ABG) 3.9 MEQ/L 3.4-5.0 N CHLORIDE (test code = CL/ABG) 109 MEQ/L 100-108 H CREATININE ABG (test code = 0.9 mg/dL 0.8-1.3 N CREAABG) POC IONIZED CALCIUM (test code = 1.32 MMOL/L 1.12-1.32 N POCCA) POC GLUCOSE (test code = POCGLU) 129 MG/DL HEMOGLOBIN [id number] 10:28:00 Test Item Value Reference Range Interpretation Comments HEMOGLOBIN ABG (test code = HGB/ABG) 7.3 G/DL 12.5-16.9 L [id number] 10:28:00 Test Item Value Reference Range Interpretation Comments HEMATOCRIT (test code = HCT/ABG) 21 % 37.5-50.7 L POC LACTIC [id number] 10:28:00 Test Item Value Reference Range Interpretation Comments POC LACTIC ACID (test code = 0.9 mmol/l 0.9-1.7 N POCLAC) [id number] 09:50:00 Test Item Value Reference Range Interpretation Comments ACT-ISTAT (test code 529 SEC 74-137 H Perform ed by certified = ACTI) press operator printing at [facility] POC ARTERIAL BLOOD [id number] 09:39:00 Test Item Value Reference Range Interpretation Comments POC ARTERIAL BLOOD GAS PH (test 7.468 7.35-7.45 H code = POCPHA) POC ARTERIAL BLOOD GAS PCO2 (test 33.0 mmHg 35.0-45 L code = ZACYJA1C) POC TCO2 ARTERIAL (test code = 24.9 POCTCO2) POC ARTERIAL BLOOD GAS PO2 (test 331.6 mmHg 80-100.0 HH code = BUICK1Y) POC HCO3 ARTERIAL (test code = 23.9 MMOL/L 22.0-26.0 N ZJHKNT1H) POC BASE EXCESS (test code = 0.3 MMOL/L -4.0-4.0 N POCBEA) POC O2 SATURATION (test code = 99.9 % 90-100 N POCO2S) BASIC METABOLIC [id number] 09:39:00 Test Item Value Reference Range Interpretation Comments SODIUM (test code = NA/ABG) 136 MEQ/L 134-147 N POTASSIUM (test code = K/ABG) 4.9 MEQ/L 3.4-5.0 N CHLORIDE (test code = CL/ABG) 106 MEQ/L 100-108 N CREATININE ABG (test code = 1.1 mg/dL 0.8-1.3 N CREAABG) POC IONIZED CALCIUM (test code = 1.05 MMOL/L 1.12-1.32 L POCCA) POC GLUCOSE (test code = POCGLU) 112 MG/DL HEMOGLOBIN [id number] 09:39:00 Test Item Value Reference Range Interpretation Comments HEMOGLOBIN ABG (test code = HGB/ABG) 8.1 G/DL 12.5-16.9 L [id number] 09:39:00 Test Item Value Reference Range Interpretation Comments HEMATOCRIT (test code = HCT/ABG) 24 % 37.5-50.7 L POC LACTIC [id number] 09:39:00 Test Item Value Reference Range Interpretation Comments POC LACTIC ACID (test code = 1.3 mmol/l 0.9-1.7 N POCLAC) [id number] 09:12:00 Test Item Value Reference Range Interpretation Comments ACT-ISTAT (test code 714 SEC 74-137 H Perform ed by certified = ACTI) press operator printing at [facility] POC ARTERIAL BLOOD [id number] 08:56:00 Test Item Value Reference Range Interpretation Comments POC ARTERIAL BLOOD GAS PH (test 7.387 7.35-7.45 N code = POCPHA) POC ARTERIAL BLOOD GAS PCO2 (test 41.0 mmHg 35.0-45 N code = EYMODX2L) POC TCO2 ARTERIAL (test code = 25.9 POCTCO2) POC ARTERIAL BLOOD GAS PO2 (test 464.2 mmHg 80-100.0 HH code = IOOLS8M) POC HCO3 ARTERIAL (test code = 24.7 MMOL/L 22.0-26.0 N GNCFVQ8U) POC BASE EXCESS (test code = -0.3 MMOL/L -4.0-4.0 N POCBEA) POC O2 SATURATION (test code = 100.0 % 90-100 N POCO2S) BASIC METABOLIC [id number] 08:56:00 Test Item Value Reference Range Interpretation Comments SODIUM (test code = NA/ABG) 141 MEQ/L 134-147 N POTASSIUM (test code = K/ABG) 4.3 MEQ/L 3.4-5.0 N CHLORIDE (test code = CL/ABG) 104 MEQ/L 100-108 N CREATININE ABG (test code = 1.1 mg/dL 0.8-1.3 N CREAABG) POC IONIZED CALCIUM (test code = 1.02 MMOL/L 1.12-1.32 L POCCA) POC GLUCOSE (test code = POCGLU) 121 MG/DL HEMOGLOBIN [id number] 08:56:00 Test Item Value Reference Range Interpretation Comments HEMOGLOBIN ABG (test code = HGB/ABG) 8.7 G/DL 12.5-16.9 L [id number] 08:56:00 Test Item Value Reference Range Interpretation Comments HEMATOCRIT (test code = HCT/ABG) 26 % 37.5-50.7 L POC LACTIC [id number] 08:56:00 Test Item Value Reference Range Interpretation Comments POC LACTIC ACID (test code = 1.3 mmol/l 0.9-1.7 N POCLAC) [id number] 08:24:00 Test Item Value Reference Range Interpretation Comments ACT-ISTAT (test code 809 SEC 74-137 H Perform ed by certified = ACTI) press operator printing at [facility] POC ARTERIAL BLOOD [id number] 08:07:00 Test Item Value Reference Range Interpretation Comments POC ARTERIAL BLOOD GAS PH (test 7.275 7.35-7.45 LL code = POCPHA) POC ARTERIAL BLOOD GAS PCO2 (test 50.4 mmHg 35.0-45 HH code = [id number]) POC TCO2 ARTERIAL (test code = 25.0 POCTCO2) POC ARTERIAL BLOOD GAS PO2 (test 396.4 mmHg 80-100.0 HH code = [id number]) POC HCO3 ARTERIAL (test code = 23.4 MMOL/L 22.0-26.0 N [id number]) POC BASE EXCESS (test code = -3.6 MMOL/L -4.0-4.0 N POCBEA) POC O2 SATURATION (test code = 99.9 % 90-100 N POCO2S) BASIC METABOLIC [id number] 08:07:00 Test Item Value Reference Range Interpretation Comments SODIUM (test code = NA/ABG) 143 MEQ/L 134-147 N POTASSIUM (test code = K/ABG) 3.3 MEQ/L 3.4-5.0 L CHLORIDE (test code = CL/ABG) 108 MEQ/L 100-108 N CREATININE ABG (test code = 1.0 mg/dL 0.8-1.3 N CREAABG) POC IONIZED CALCIUM (test code = 1.19 MMOL/L 1.12-1.32 N POCCA) POC GLUCOSE (test code = POCGLU) 152 MG/DL HEMOGLOBIN [id number] 08:07:00 Test Item Value Reference Range Interpretation Comments HEMOGLOBIN ABG (test code = 10.8 G/DL 12.5-16.9 L HGB/ABG) [id number] 08:07:00 Test Item Value Reference Range Interpretation Comments HEMATOCRIT (test code = HCT/ABG) 32 % 37.5-50.7 L POC LACTIC [id number] 08:07:00 Test Item Value Reference Range Interpretation Comments POC LACTIC ACID (test code = 1.4 mmol/l 0.9-1.7 N POCLAC) [id number] 07:27:00 Test Item Value Reference Range Interpretation Comments ACT-ISTAT (test code 148 SEC 74-137 H Perform ed by certified = ACTI) press operator printing at [facility] POC ARTERIAL BLOOD [id number] 07:15:00 Test Item Value Reference Range Interpretation Comments POC ARTERIAL BLOOD GAS PH (test 7.446 7.35-7.45 N code = POCPHA) POC ARTERIAL BLOOD GAS PCO2 (test 31.6 mmHg 35.0-45 L code = [id number]) POC TCO2 ARTERIAL (test code = 22.7 POCTCO2) POC ARTERIAL BLOOD GAS PO2 (test 376.9 mmHg 80-100.0 HH code = [id number]) POC HCO3 ARTERIAL (test code = 21.8 MMOL/L 22.0-26.0 L [id number]) POC BASE EXCESS (test code = -1.5 MMOL/L -4.0-4.0 N POCBEA) POC O2 SATURATION (test code = 100.0 % 90-100 N POCO2S) BASIC METABOLIC [id number] 07:15:00 Test Item Value Reference Range Interpretation Comments SODIUM (test code = NA/ABG) 140 MEQ/L 134-147 N POTASSIUM (test code = K/ABG) 3.6 MEQ/L 3.4-5.0 N CHLORIDE (test code = CL/ABG) 106 MEQ/L 100-108 N CREATININE ABG (test code = 0.9 mg/dL 0.8-1.3 N CREAABG) POC IONIZED CALCIUM (test code = 1.21 MMOL/L 1.12-1.32 N POCCA) POC GLUCOSE (test code = POCGLU) 197 MG/DL HEMOGLOBIN [id number] 07:15:00 Test Item Value Reference Range Interpretation Comments HEMOGLOBIN ABG (test code = 12.5 G/DL 12.5-16.9 N HGB/ABG) [id number] 07:15:00 Test Item Value Reference Range Interpretation Comments HEMATOCRIT (test code = HCT/ABG) 37 % 37.5-50.7 L POC LACTIC [id number] 07:15:00 Test Item Value Reference Range Interpretation Comments POC LACTIC ACID (test code = 1.3 mmol/l 0.9-1.7 N POCLAC) B-TYPE NATRIURETIC [id number] 04:56:00 Test Item Value Reference Range Interpretation Comments B-TYPE NATRIURETIC PEPTIDE (test 68.0 PG/ML 0-100 N code = BNP) COMPREHENSIVE METABOLIC [id number] 04:47:00 Test Item Value Reference Range Interpretation Comments SODIUM (test code = NA) 142 mEq/L 134-147 N POTASSIUM (test code = 3.8 mEq/L 3.4-5.0 N K) CHLORIDE (test code = 111 mEq/L 100-108 H CL) CARBON DIOXIDE (test 24 mEq/l 21-33 N code = CO2) ANION GAP (test code = 11 0-20 N GAP) GLUCOSE (test code = 122 mg/dL 70-110 H GLU) BLOOD UREA NITROGEN 15 mg/dL 7-18 N (test code = BUN) GLOMERULAR FILTRATION 85.0 80-90 N Units of measure = RATE (test code = GFR) ml/mi n/1.73 m2 CREATININE (test code = 0.9 mg/dL 0.6-1.3 N CREAT) TOTAL PROTEIN (test 6.1 g/dL 6.4-8.2 L code = PROT) ALBUMIN (test code = 3.90 g/dL 3.4-5.0 N ALB) CALCIUM (test code = 9.1 mg/dL 8.0-10.5 N CA) BILIRUBIN TOTAL (test 1.80 mg/dL 0.0-1.0 H code = BILT) SGOT/AST (test code = 20 IUnit/L 15-37 N AST) SGPT/ALT (test code = 22 IUnit/L 30-65 L ALT) ALKALINE PHOSPHATASE 68 IUnit/L 20-125 N TOTAL (test code = ALKP) PROTHROMBIN [id number] 04:45:00 Test Item Value Reference Range Interpretation Comments PROTHROMBIN TIME 12.6 SECONDS 9.3-12.9 N PATIENT (test code = PTP) INTERNATIONAL NORMAL 1.1 0.8-1.2 N TARGET INR BY RATIO (test code = INDICATIO N Indication INR) INR1. Prophylax is of venous thrombos is 2.0 - 3.0 (orthoped ic surgery), Proph ylaxis of venous throm bosis (other than hig h-risk surgery), Treat ment of Deep Vein Thrombosis/Pulm onary Embolism, Preve ntion of systemic emb olism - Tissue heart va lves, Acute Myocardia l Infarction (to prevent systemic emboli sm), Valvular heart disease, Atrial Fibrillation, Bileaflet mecha nical valve in aortic position.2. Mec hanical prosthetic valv es (high risk), 2. 5 - 3.5 Presence of Lup us Anticoagulant o r Antiphospholipi d Antibodies, Pre vention of systemic emb olism - Acute Myocardia l Infarction (to prevent recurrent infar ct). THROMBOPLASTIN TIME [id number] 04:45:00 Test Item Value Reference Range Interpretation Comments THROMBOPLASTIN TIME 64.4 Seconds 25.0-39.5 H Therape utic Range: PARTIAL (test code = 50.4 - 88.3 Seconds PTT) Effective 05/25/2018 [id number] 04:36:00 Test Item Value Reference Range Interpretation Comments HGBA1C% (test code = HGBA1C%) 6.4 %A1C 4.8-6.0 H CBC W/AUTO [id number] 04:26:00 Test Item Value Reference Range Interpretation Comments WHITE BLOOD CELL (test code = 10.0 x10 3/uL 4.5-11.0 N WBC) RED BLOOD CELL (test code = 5.11 x10 6/uL 4.00-5.60 N RBC) HEMOGLOBIN (test code = HGB) 13.5 g/dL 12.5-16.9 N HEMATOCRIT (test code = HCT) 42.1 % 37.5-50.7 N MEAN CELL VOLUME (test code = 82.4 fL 81.0-99.0 N MCV) MEAN CELL HGB (test code = MCH) 26.4 pg 27.0-33.0 L MEAN CELL HGB CONCETRATION 32.1 g/dL 33.0-37.0 L (test code = MCHC) RED CELL DISTRIBUTION WIDTH CV 15.4 % 11.5-14.5 H (test code = RDW) RED CELL DISTRIBUTION WIDTH SD 46.5 fL 37.0-54.0 N (test code = RDW-SD) PLATELET COUNT (test code = 161 x10 3/uL 150-400 N PLT) MEAN PLATELET VOLUME (test code 12.6 fL 7.0-9.0 H = MPV) NEUTROPHIL % (test code = NT%) 49.1 % 56.0-77.0 L IMMATURE GRANULOCYTE % (test 0.5 % 0.0-2.0 N code = IG%) LYMPHOCYTE % (test code = LY%) 33.0 % 14.0-32.0 H MONOCYTE % (test code = MO%) 10.3 % 4.8-9.0 H EOSINOPHIL % (test code = EO%) 6.2 % 0.3-3.7 H BASOPHIL % (test code = BA%) 0.9 % 0.0-2.0 N NUCLEATED RBC % (test code = 0.0 % 0-0 N NRBC%) NEUTROPHIL # (test code = NT#) 4.90 x10 3/uL 2.0-7.6 N IMMATURE GRANULOCYTE # (test 0.05 x10 3/uL 0.00-0.03 H code = IG#) LYMPHOCYTE # (test code = LY#) 3.30 x10 3/uL 1.0-3.8 N MONOCYTE # (test code = MO#) 1.03 x10 3/uL 0.1-0.8 H EOSINOPHIL # (test code = EO#) 0.62 x10 3/uL 0.0-0.2 H BASOPHIL # (test code = BA#) 0.09 x10 3/uL 0.0-0.2 N NUCLEATED RBC # (test code = 0.00 x10 3/uL 0.0-0.1 N NRBC#) MANUAL DIFF REQUIRED (test code NO = MDIFF) - XR CHEST 1 [id number] 00:00:00 [facility] 1955 Sex: M FAX: Fiorella Dixon MD [phone] [place]: St: ADM FAX: Efren Cardenas MD Name: CASEY BURCH [facility] : 1955 Age/S:65/M [address] [place] [address] Unit #: [id number] Loc: .[address] [place] [address] Phys: Efren Cardenas MD Acct: [id number] Dis Date: Status: ADM IN PHONE #: [phone] Exam Date: 02/04/2021 1322 FAX #: [phone] Reason: POST CABG, STILL INTUBATED EXAMS: CPT CODE: [id number] XR CHEST 1 V 43151 PROCEDURE INFORMATION: Exam: XR Chest Exam date and time: 02/04/2021 11:46 AM Age: 65 years old Clinicalindication: Other: Post cabg; Additional info: Post cabg, still intubated TECHNIQUE: Imaging protocol: XR of the chest. Views: 1 view. COMPARISON: CR XR CHEST 1V 02/04/2021 10:29 AM FINDINGS: Tubes, catheters and devices: Endotracheal tube 5.6 cm above the katelyn. Mediastinal and left thoracostomy drains in place. EKG and epicardial pacer leads overlie the chest. Right IJ sheath in place. Lungs: Indistinct perihilar opacities without significant change. Opacification left base obscuring the left hemidiaphragm without significant change. Pleural spaces: There is no pneumothorax. Heart/Mediastinum: Moderate prominence of the cardiomediastinal silhouette is stable. Bones/joints: Sternotomy wires are intact. IMPRESSION: Stable postoperative chest. Mild perihilar opacities compatible with edema. Stable left basilar pleuroparenchymal disease. at 1332 Reported and signed by: Scott Coughlin M.D. CC: Fiorella Dixon MD; Efren Cardenas MD Technologist: CORNELIUS Crawley) Trnscrd Date/Time/By: 02/04/2021 (226) : By: PavanKWL Orig Print D/T: S: 02/04/2021 (2905) PAGE 1 Signed Report- XR CHEST 1 [id number] 00:00:00 [facility] : 1955 Sex: M FAX: Fiorella Dixon MD [phone] [place]: St: [facility] FAX: Martina Mauro [phone] Name: MARCINCASEY [facility] :1955 Age/S: 65/M [address] [place] [address] Unit #: [id number] Loc: [place] [address] Phys: Martina Feliz MD Acct: [id number] Dis Date: Status: ADM IN PHONE #: [phone] Exam Date: 02/04/2021 1057 FAX #: [phone] Reason: LOST ITEM EXAMS: CPT CODE: [id number] XR CHEST 1 V 25455 PROCEDURE INFORMATION: Exam: XR Chest Exam date and time: 02/04/2021 10:29 AM Age: 65 years old Clinical indication: Pain; Other: Missing needle during count; Additional info: Lost item; Stat thoracic surgery without instrument count. TECHNIQUE: Imaging protocol: XR of the chest. Views: 1 view. Other technique: AP chest obtained intraoperatively with patient supine, 3 images total. COMPARISON: CT CHEST W/O CONTRAST 02/01/2021 12:48 PM FINDINGS: Tubes, catheters and devices: Endoscope in place overlying the lower thoracic esophagus. Mediastinal and left thoracostomy drains in place. Right IJ sheath in place. EKG leads, epicardial pacer leads and defibrillator pads overlie the chest. Mediastinal clips compatible with CABG. There is no unexpected radiopaque foreign material. Lungs: Indistinct perihilar and infrahilar opacities bilateral. opacification left base obscuring the left hemidiaphragm and costophrenic angle. Pleural spaces: There is no pneumothorax. Heart/Mediastinum: Mild prominence of the cardiomediastinal silhouette magnified by projection and low lung volumes. Bones/joints: Sternotomy wires intact. Other findings: A verbal report was called to the CVOR via Crystal, RT on 02/04/2021 at 11:11 a.m. IMPRESSION: 1. Intraoperative images post cardiac surgery. No unintended radiopaqueforeign material. 2. Perihilar and infrahilar opacities compatible with edema. 3. Small left pleuraleffusion with left basilar atelectasis versus airspace disease. at 1128 Reported and signed by: Scott Coughlin M.D. PAGE 1 Signed Report (CONTINUED) FAX: Fiorella Dixon MD [phone] [place]: St: ADM FAX: Martina Mauro [phone] Name: CASEY BURCH [facility] : 1955 Age/S: 65/M [address] [place] [address] Blvd Unit #: [id number] Loc: [address] [place] [address] Phys: Martina Feliz MD Acct: [id number] Dis Date: Status: ADM IN PHONE #: [phone] Exam Date: 02/04/2021 105 FAX #: [phone] Reason: LOST ITEM EXAMS: CPT CODE:[id number] XR CHEST 1 V 77056 (Continued) CC: Fiorella Dixon MD; Martina Feliz MD Technologist: RT Susan(R) Trnscrd Date/Time/By: 02/04/2021 (1128) : By: PavanKWL Orig Print D/T: S: 02/04/2021 (1129) PAGE 2 Signed ReportGLUCOSE [id number] 20:26:00 Test Item Value Reference Range Interpretation Comments GLUCOSE BEDSIDE (test 114 MG/DL 70-110 H Perfor med by certified code = GLUBED) press operator printing at [facility] GLUCOSE [id number] 17:06:00 Test Item Value Reference Range Interpretation Comments GLUCOSE BEDSIDE (test 138 MG/DL 70-110 H Perfor med by certified code = GLUBED) press operator printing at [facility] GLUCOSE [id number] 12:25:00 Test Item Value Reference Range Interpretation Comments GLUCOSE BEDSIDE (test 114 MG/DL 70-110 H Perfor med by certified code = GLUBED) press operator printing at [facility] COVID 19 Asymptomatic IH [id number] 11:54:00 Test Item Value Reference Range Interpretation Comments COVID 19 Asymptomatic Negative Negative A nega tive result is IH AG (test code = presumpti ve and should COVNONPUIAG) be confirmedwit h an FDA authorized mole cular assay, if janelle palafox forpatient cathy louise.A positive result does not rule out co-inf ections withother patho gens.This test detects bertha th viable (live) and non-viable,SARS -CoV, and SARS-CoV-2. Jose M t performance dep ends on theamount of vi [place] (antigen) in th e sample.This jose m t has not been FDA cleare d or approved; the t est hasbeen authori zed by FDA under an Em ergency Use Authorizati on(EUA) for use by labo ratories certified under the CLIA thatmeet the requirements to perform moderate, high or waivedcomplexit y tests. BASIC METABOLIC [id number] 04:57:00 Test Item Value Reference Range Interpretation Comments SODIUM (test code = NA) 144 mEq/L 134-147 N POTASSIUM (test code = 3.8 mEq/L 3.4-5.0 N K) CHLORIDE (test code = 111 mEq/L 100-108 H CL) CARBON DIOXIDE (test 25 mEq/l 21-33 N code = CO2) ANION GAP (test code = 12 0-20 N GAP) GLUCOSE (test code = 105 mg/dL 70-110 N GLU) BLOOD UREA NITROGEN 15 mg/dL 7-18 N (test code = BUN) GLOMERULAR FILTRATION 85.0 80-90 N Units of measure = RATE (test code = GFR) ml/mi n/1.73 m2 CREATININE (test code = 0.9 mg/dL 0.6-1.3 N CREAT) CALCIUM (test code = 9.0 mg/dL 8.0-10.5 N CA) [id number] 04:57:00 Test Item Value Reference Range Interpretation Comments MAGNESIUM (test code = MAG) 1.93 mg/dL 1.80-2.40 N THROMBOPLASTIN TIME [id number] 04:49:00 Test Item Value Reference Range Interpretation Comments THROMBOPLASTIN TIME 72.2 Seconds 25.0-39.5 H Therape utic Range: PARTIAL (test code = 50.4 - 88.3 Seconds PTT) Effective 05/25/2018 CBC W/AUTO [id number] 04:40:00 Test Item Value Reference Range Interpretation Comments WHITE BLOOD CELL (test code = 9.7 x10 3/uL 4.5-11.0 N WBC) RED BLOOD CELL (test code = 4.95 x10 6/uL 4.00-5.60 N RBC) HEMOGLOBIN (test code = HGB) 13.1 g/dL 12.5-16.9 N HEMATOCRIT (test code = HCT) 41.0 % 37.5-50.7 N MEAN CELL VOLUME (test code = 82.8 fL 81.0-99.0 N MCV) MEAN CELL HGB (test code = MCH) 26.5 pg 27.0-33.0 L MEAN CELL HGB CONCETRATION 32.0 g/dL 33.0-37.0 L (test code = MCHC) RED CELL DISTRIBUTION WIDTH CV 15.4 % 11.5-14.5 H (test code = RDW) RED CELL DISTRIBUTION WIDTH SD 46.8 fL 37.0-54.0 N (test code = RDW-SD) PLATELET COUNT (test code = 154 x10 3/uL 150-400 N PLT) MEAN PLATELET VOLUME (test code 12.1 fL 7.0-9.0 H = MPV) NEUTROPHIL % (test code = NT%) 51.6 % 56.0-77.0 L IMMATURE GRANULOCYTE % (test 0.5 % 0.0-2.0 N code = IG%) LYMPHOCYTE % (test code = LY%) 31.0 % 14.0-32.0 N MONOCYTE % (test code = MO%) 9.2 % 4.8-9.0 H EOSINOPHIL % (test code = EO%) 6.9 % 0.3-3.7 H BASOPHIL % (test code = BA%) 0.8 % 0.0-2.0 N NUCLEATED RBC % (test code = 0.0 % 0-0 N NRBC%) NEUTROPHIL # (test code = NT#) 5.01 x10 3/uL 2.0-7.6 N IMMATURE GRANULOCYTE # (test 0.05 x10 3/uL 0.00-0.03 H code = IG#) LYMPHOCYTE # (test code = LY#) 3.02 x10 3/uL 1.0-3.8 N MONOCYTE # (test code = MO#) 0.90 x10 3/uL 0.1-0.8 H EOSINOPHIL # (test code = EO#) 0.67 x10 3/uL 0.0-0.2 H BASOPHIL # (test code = BA#) 0.08 x10 3/uL 0.0-0.2 N NUCLEATED RBC # (test code = 0.00 x10 3/uL 0.0-0.1 N NRBC#) MANUAL DIFF REQUIRED (test code NO = MDIFF) COMMENTS: Daily while on HeparinGLUCOSE [id number] 20:41:00 Test Item Value Reference Range Interpretation Comments GLUCOSE BEDSIDE (test 235 MG/DL 70-110 H Perfor med by certified code = GLUBED) press operator printing at [facility] GLUCOSE [id number] 17:56:00 Test Item Value Reference Range Interpretation Comments GLUCOSE BEDSIDE (test 104 MG/DL 70-110 N Perfor med by certified code = GLUBED) press operator printing at [facility] GLUCOSE [id number] 11:22:00 Test Item Value Reference Range Interpretation Comments GLUCOSE BEDSIDE (test 109 MG/DL 70-110 N Perfor med by certified code = GLUBED) press operator printing at [facility] [id number] 04:21:00 Test Item Value Reference Range Interpretation Comments MAGNESIUM (test code = MAG) 1.73 mg/dL 1.80-2.40 L BASIC METABOLIC [id number] 03:57:00 Test Item Value Reference Range Interpretation Comments SODIUM (test code = NA) 141 mEq/L 134-147 N POTASSIUM (test code = 3.7 mEq/L 3.4-5.0 N K) CHLORIDE (test code = 109 mEq/L 100-108 H CL) CARBON DIOXIDE (test 26 mEq/l 21-33 N code = CO2) ANION GAP (test code = 9 0-20 N GAP) GLUCOSE (test code = 126 mg/dL 70-110 H GLU) BLOOD UREA NITROGEN 14 mg/dL 7-18 N (test code = BUN) GLOMERULAR FILTRATION 97.3 80-90 H Units of measure = RATE (test code = GFR) ml/mi n/1.73 m2 CREATININE (test code = 0.8 mg/dL 0.6-1.3 N CREAT) CALCIUM (test code = 8.9 mg/dL 8.0-10.5 N CA) THROMBOPLASTIN TIME [id number] 03:55:00 Test Item Value Reference Range Interpretation Comments THROMBOPLASTIN TIME 75.1 Seconds 25.0-39.5 H Therape utic Range: PARTIAL (test code = 50.4 - 88.3 Seconds PTT) Effective 05/25/2018 CBC W/AUTO [id number] 03:50:00 Test Item Value Reference Range Interpretation Comments WHITE BLOOD CELL (test code = 9.5 x10 3/uL 4.5-11.0 N WBC) RED BLOOD CELL (test code = 4.98 x10 6/uL 4.00-5.60 N RBC) HEMOGLOBIN (test code = HGB) 13.3 g/dL 12.5-16.9 N HEMATOCRIT (test code = HCT) 40.7 % 37.5-50.7 N MEAN CELL VOLUME (test code = 81.7 fL 81.0-99.0 N MCV) MEAN CELL HGB (test code = MCH) 26.7 pg 27.0-33.0 L MEAN CELL HGB CONCETRATION 32.7 g/dL 33.0-37.0 L (test code = MCHC) RED CELL DISTRIBUTION WIDTH CV 15.4 % 11.5-14.5 H (test code = RDW) RED CELL DISTRIBUTION WIDTH SD 46.0 fL 37.0-54.0 N (test code = RDW-SD) PLATELET COUNT (test code = 161 x10 3/uL 150-400 N PLT) MEAN PLATELET VOLUME (test code 12.1 fL 7.0-9.0 H = MPV) NEUTROPHIL % (test code = NT%) 46.9 % 56.0-77.0 L IMMATURE GRANULOCYTE % (test 0.7 % 0.0-2.0 N code = IG%) LYMPHOCYTE % (test code = LY%) 34.3 % 14.0-32.0 H MONOCYTE % (test code = MO%) 8.6 % 4.8-9.0 N EOSINOPHIL % (test code = EO%) 8.7 % 0.3-3.7 H BASOPHIL % (test code = BA%) 0.8 % 0.0-2.0 N NUCLEATED RBC % (test code = 0.0 % 0-0 N NRBC%) NEUTROPHIL # (test code = NT#) 4.44 x10 3/uL 2.0-7.6 N IMMATURE GRANULOCYTE # (test 0.07 x10 3/uL 0.00-0.03 H code = IG#) LYMPHOCYTE # (test code = LY#) 3.26 x10 3/uL 1.0-3.8 N MONOCYTE # (test code = MO#) 0.82 x10 3/uL 0.1-0.8 H EOSINOPHIL # (test code = EO#) 0.83 x10 3/uL 0.0-0.2 H BASOPHIL # (test code = BA#) 0.08 x10 3/uL 0.0-0.2 N NUCLEATED RBC # (test code = 0.00 x10 3/uL 0.0-0.1 N NRBC#) MANUAL DIFF REQUIRED (test code NO = MDIFF) COMMENTS: Daily while on HeparinTHROMBOPLASTIN TIME [id number] 23:03:00 Test Item Value Reference Range Interpretation Comments THROMBOPLASTIN TIME 68.7 Seconds 25.0-39.5 H Therape utic Range: PARTIAL (test code = 50.4 - 88.3 Seconds PTT) Effective 05/25/2018 GLUCOSE [id number] 20:17:00 Test Item Value Reference Range Interpretation Comments GLUCOSE BEDSIDE (test 106 MG/DL 70-110 N Perfor med by certified code = GLUBED) press operator printing at [facility] T4 [id number] 17:52:00 Test Item Value Reference Range Interpretation Comments T4 FREE (test code = T4F) 1.2 ng/dL 0.77-1.61 N THROMBOPLASTIN TIME [id number] 17:41:00 Test Item Value Reference Range Interpretation Comments THROMBOPLASTIN TIME 55.4 Seconds 25.0-39.5 H Therape utic Range: PARTIAL (test code = 50.4 - 88.3 Seconds PTT) Effective 05/25/2018 GLUCOSE [id number] 17:18:00 Test Item Value Reference Range Interpretation Comments GLUCOSE BEDSIDE (test 145 MG/DL 70-110 H Perfor med by certified code = GLUBED) press operator printing at [facility] URINALYSIS [id number] 11:51:00 Test Item Value Reference Range Interpretation Comments UA COLOR (test code = COLU) YELLOW YEL/STRAW UA APPEARANCE (test code = CLEAR CLEAR APPU) UA GLUCOSE DIPSTICK (test code NEGATIVE NEGATIVE = DGLUU) UA BILIRUBIN DIPSTICK (test NEGATIVE NEGATIVE code = BILU) UA KETONE DIPSTICK (test code NEGATIVE NEGATIVE = KETU) UA SPECIFIC GRAVITY (test code 1.016 1.005-1.030 N = SGU) UA BLOOD DIPSTICK (test code = NEGATIVE NEGATIVE LUIS ANGEL) UA PH DIPSTICK (test code = 6.0 5.0-7.0 N ANNA) UA PROTEIN DIPSTICK (test code NEGATIVE NEGATIVE = PROU) UA UROBILINIOGEN DIPSTICK 0.2 mg/dL 0.2-1.0 (test code = URO) UA NITRITE DIPSTICK (test code NEGATIVE NEGATIVE = MIKIE) UA LEUKOCYTE ESTERASE DIPSTICK NEGATIVE NEGATIVE (test code = LEUU) UA RBC (test code = RBCU) 0-3 RBC/HPF 0-3 UA WBC NO REFLEX (test code = 0-3 WBC/HPF 0-3 WBCUCL) UA BACTERIA (test code = BACU) NONE SEEN /HPF NONE SEEN UA SQUAMOUS CELLS (test code = NONE SEEN /HPF NONE SEEN SQU) UA MUCUS (test code = MUCU) TRACE /LPF NONE SEEN GLUCOSE [id number] 11:24:00 Test Item Value Reference Range Interpretation Comments GLUCOSE BEDSIDE (test 134 MG/DL 70-110 H Perfor med by certified code = GLUBED) press operator printing at [facility] PLT RESPONSE TO [id number] 11:10:00 Test Item Value Reference Range Interpretation Comments PLT RESPONSE TO PLAVIX 180 PRU 182-335 L Value s <180 PRU are (test code = PLAVRES) specif ic evidence of a P2Y12 inhibitor effect. Testing can onl y be performed if pa tient sample values a re within the following r anges: Hematocrit 33-5 2%, Platelet Count 119,000-502,000 /uL. Patient values outside of theseranges will be rejected by our instrumentation . THROMBOPLASTIN TIME [id number] 11:03:00 Test Item Value Reference Range Interpretation Comments THROMBOPLASTIN TIME 92.9 Seconds 25.0-39.5 H Therape utic Range: PARTIAL (test code = 50.4 - 88.3 Seconds PTT) Effective 05/25/2018 GLUCOSE [id number] 08:24:00 Test Item Value Reference Range Interpretation Comments GLUCOSE BEDSIDE (test 103 MG/DL 70-110 N Perfor med by certified code = GLUBED) press operator printing at [facility] BASIC METABOLIC [id number] 04:12:00 Test Item Value Reference Range Interpretation Comments SODIUM (test code = NA) 140 mEq/L 134-147 N POTASSIUM (test code = 3.8 mEq/L 3.4-5.0 N K) CHLORIDE (test code = 107 mEq/L 100-108 N CL) CARBON DIOXIDE (test 26 mEq/l 21-33 N code = CO2) ANION GAP (test code = 11 0-20 N GAP) GLUCOSE (test code = 118 mg/dL 70-110 H GLU) BLOOD UREA NITROGEN 17 mg/dL 7-18 (test code = BUN) GLOMERULAR FILTRATION 85.0 80-90 N Units of measure = RATE (test code = GFR) ml/mi n/1.73 m2 CREATININE (test code = 0.9 mg/dL 0.6-1.3 N CREAT) CALCIUM (test code = 8.9 mg/dL 8.0-10.5 N CA) LIPID PROFILE (CORONARY RISK)[id number] 04:12:00 Test Item Value Reference Range Interpretation Comments TRIGLYCERIDES (test 89 mg/dL 40-150 N code = TRIG) CHOLESTEROL (test 127 mg/dL <200 code = CHOL) CHOLESTEROL/HDL 3.43 RATIO 3.43-4.97 N RISK ASSOCIA JACOB WITH RATIO (test code = CHOL/HDL RATIOS: RISK CHOLHDL) MALE FEMALE1/2 AVERAGE 3.43 3.27AVERA GE 4.97 4.442X AVERAGE 9.55 7.053X AVERAGE 23.39 11.04 NOTE THAT THE REFERENCE VALUE IS RELATEDTO RISK LEVELS RECOMMENDED BY THE NATL.HEART, IVON G, AND BLOOD INST. HDL CHOLESTEROL 37.0 mg/dL 32-72 N (test code = HDL) LIPOPROTEIN LDL 79.9 mg/dL 0-100 N <100 OPTIMAL 100-129 (test code = LDL) NEAR OPTIM AL/ABOVE [id number] 89 HIGH>IP=260 AMALIA Y HIGH*Guidelines provided by the National Choles terol EducationProgra m Adult Treatment Panel III [id number] 04:12:00 Test Item Value Reference Range Interpretation Comments PHOSPHOROUS (test code = PHOS) 3.4 MG/DL 2.5-4.9 N [id number] 04:12:00 Test Item Value Reference Range Interpretation Comments MAGNESIUM (test code = MAG) 1.53 mg/dL 1.80-2.40 L THROMBOPLASTIN TIME [id number] 04:02:00 Test Item Value Reference Range Interpretation Comments THROMBOPLASTIN TIME 51.9 Seconds 25.0-39.5 H Therape utic Range: PARTIAL (test code = 50.4 - 88.3 Seconds PTT) Effective 05/25/2018 CBC W/AUTO [id number] 03:51:00 Test Item Value Reference Range Interpretation Comments WHITE BLOOD CELL (test code = 10.9 x10 3/uL 4.5-11.0 N WBC) RED BLOOD CELL (test code = 4.90 x10 6/uL 4.00-5.60 N RBC) HEMOGLOBIN (test code = HGB) 13.3 g/dL 12.5-16.9 N HEMATOCRIT (test code = HCT) 40.1 % 37.5-50.7 N MEAN CELL VOLUME (test code = 81.8 fL 81.0-99.0 N MCV) MEAN CELL HGB (test code = MCH) 27.1 pg 27.0-33.0 N MEAN CELL HGB CONCETRATION 33.2 g/dL 33.0-37.0 N (test code = MCHC) RED CELL DISTRIBUTION WIDTH CV 15.4 % 11.5-14.5 H (test code = RDW) RED CELL DISTRIBUTION WIDTH SD 45.8 fL 37.0-54.0 N (test code = RDW-SD) PLATELET COUNT (test code = 166 x10 3/uL 150-400 N PLT) MEAN PLATELET VOLUME (test code 12.5 fL 7.0-9.0 H = MPV) NEUTROPHIL % (test code = NT%) 49.6 % 56.0-77.0 L IMMATURE GRANULOCYTE % (test 0.5 % 0.0-2.0 N code = IG%) LYMPHOCYTE % (test code = LY%) 33.4 % 14.0-32.0 H MONOCYTE % (test code = MO%) 7.6 % 4.8-9.0 N EOSINOPHIL % (test code = EO%) 7.9 % 0.3-3.7 H BASOPHIL % (test code = BA%) 1.0 % 0.0-2.0 N NUCLEATED RBC % (test code = 0.0 % 0-0 N NRBC%) NEUTROPHIL # (test code = NT#) 5.38 x10 3/uL 2.0-7.6 N IMMATURE GRANULOCYTE # (test 0.05 x10 3/uL 0.00-0.03 H code = IG#) LYMPHOCYTE # (test code = LY#) 3.63 x10 3/uL 1.0-3.8 N MONOCYTE # (test code = MO#) 0.83 x10 3/uL 0.1-0.8 H EOSINOPHIL # (test code = EO#) 0.86 x10 3/uL 0.0-0.2 H BASOPHIL # (test code = BA#) 0.11 x10 3/uL 0.0-0.2 N NUCLEATED RBC # (test code = 0.00 x10 3/uL 0.0-0.1 N NRBC#) MANUAL DIFF REQUIRED (test code NO = MDIFF) COMMENTS: Daily while on Heparin- CT CHEST W/O [id number] 00:00:00 [facility] 1955 Sex: M Name: CASEY BURCH [facility] : 1955 Age/S: 65 / M [address] [place] [address] Unit #: [id number] Loc: [place] [address] Phys: Kizzy Lynn [employer]OGRAPHER Acct: [id number] Dis Date: Status: ADM IN PHONE #: [phone] Exam Date: 02/01/2021 1249 FAX #: [phone] Reason: PRE CABG EVAL EXAMS: CPT CODE: [id number] CT CHEST W/O CONTRAST [id number] PROCEDURE INFORMATION: Exam: CT Chest Without Contrast; Diagnostic Exam date and time: 02/01/2021 12:48 PM Age: 65 years old Clinical indication: Pain; Other: Pre cabg eval TECHNIQUE: Imaging protocol: Diagnostic computed tomography of the chest without contrast. Radiation optimization: All CT scans at this facility use at least one of these dose optimizationtechniques: automated exposure control; mA and/or kV adjustment per patient size (includes targeted exams where dose is matched to clinical indication); or iterative reconstruction. COMPARISON: No relevant prior studies available. FINDINGS: Thyroid: No focal lesions or enlargement to the extent visualized. Trachea: No tracheomalacia, stenosis, stricture, or filling defects. Bronchial tree: Patent. Lungs: Linear subsegmental atelectasis is demonstrated in the inferior lingula. Pleural spaces: Unremarkable. No pneumothorax. No pleural effusion. Heart: Note is made of coronary artery calcifications. No significant cardiac chamber enlargement is seen. Coronary arteries: No calcification of coronary arteries. Esophagus: No dilatation. No air fluid levels. No thickening. Mediastinal space: Slight fullness is demonstrated in the mid and distal esophagus. The differential diagnosis would include refluxversus partial obstruction at the GE junction. Pulmonary arteries: No dilatation. Aorta: Unremarkable. No aortic aneurysm. Great vessels off aortic arch: No calcified plaque formation. Lymph nodes: Unremarkable. No enlarged lymph nodes. Liver: No abnormality of visualized liver. Stomach: The patient has had gastric sleeve procedure. Bones/joints: Note is made of degenerative osteophytes anteriorly and laterally in the mid and lower dorsal spine. Soft tissues: Unremarkable. Other findings: No abnormality of visualized upper abdomen. IMPRESSION: Slight fullness is demonstrated in the mid and distal esophagus. The differential diagnosis would include reflux versus partial obstruction at the GE junction. PAGE 1 Signed Report (CONTINUED) Name: CASEY BURCH [facility] : 1955 Age/S: 65 / M [address] [place] [address] Unit #: [id number] Loc: [place] [address] Phys: Kizzy Lynn DIAGNOSTIC MEDICAL SONOGRAPHER Acct: [id number] Dis Date: Status: ADM IN PHONE #: [phone] Exam Date: 02/01/2021 1249 FAX #: Reason: PRE CABG EVAL EXAMS: CPT CODE: [id number] CT CHEST W/O CONTRAST [id number] (Continued) at 1412 Reported and signed by: Nina Acevedo M.D. CC: Fiorella Dixon MD; Kizzy Lynn NP Technologist:Ramesh Nolan, RT(R)(CT) CTDI: DLP: Trnscb Date/Time: 02/01/2021 (1411) [email or web address] Orig Print D/T: S: 02/01/2021 (1411) PAGE 2 Signed Report- DUP VEIN [id number] 00:00:00 [facility] 1955 Sex: M Name: CASEY BURCH [facility] : 1955 Age/S: 65 / M [address] [place] [address] Bl Unit #: [id number] Loc: [place] [address] Phys: Kizzy Lynn DIAGNOSTIC MEDICAL SONOGRAPHER Acct: [id number] Dis Date: Status: ADM IN PHONE #: [phone] Exam Date: 02/01/2021751 FAX #: [phone] Reason: PRE CABG EVAL EXAMS: CPT CODE: [id number] DUP VEIN DONAVAN [id number] PROCEDURE INFORMATION: Exam: US Duplex Lower Extremity Veins; Vein mapping Exam date and time: 02/01/2021 3:19 PM Age: 65 years old Clinical indication: Screening exam; pre CABG evaluation TECHNIQUE: Imaging protocol: Real-time duplex ultrasound of the Lower Extremities with 2-D hdz scale, color Doppler flow and spectral waveform analysis with image documentation. Complete exam focused on the bilateral lower extremity veins for vein mapping. COMPARISON: No relevant prior studies available. FINDINGS: Right superficial veins: Normal Doppler waveforms. Normal compressibility. Greater saphenous vein is patent. Right greater saphenous vein-upper thigh: 5.4 mm Right greater saphenous vein-mid thigh: 5.2 mm Right greater saphenous vein-lower thigh: 2.8 mm Right greatersaphenous vein-upper le.7 mm Right greater saphenous vein-mid le.3 mm Right greater saphenous vein-lower le.1 mm Left superficial veins: Normal Doppler waveforms. Normal compressibility. Gre ater saphenous vein is patent. Left greater saphenous vein-upper thigh: 4.0 mm Left greater saphenous vein-mid thigh: 2.9 mm Left greater saphenous vein-lower thigh: 2.8 mm Left greater saphenous vein-upper le.3 mm Left greater saphenous vein-mid le.6 mm Left greater saphenous vein-lower le.8 mm Soft tissues: Unremarkable. IMPRESSION: The greater saphenous veins are patent bilaterally. Size measurements as above. at 1817 Reported and signed by: Gui Michel M.D. CC: Fiorella Dixon MD; Kizzy Lynn NP Technologist: Minnie Lugo RDMS(AB) Trnscb Date/Time: 02/01/2021 (1816) [email or web address] Orig Print D/T: S: 01/10 (0706) Probe: PAGE 1 Signed Report- DUP EXTRACRANIAL [id number] 00:00[facility]00[facility] : 1955 Sex: M Name: CASEY BURCH [facility] : 1955 Age/S: 65 / M [address] [place] [address] Blvd Unit #: [id number] Loc: [place] [address] Phys: Kizzy Lynn DIAGNOSTIC MEDICAL SONOGRAPHER Acct: [id number] Dis Date: Status: ADM IN PHONE #: [phone] Exam Date: 02/01/2021751 FAX #: [phone] Reason: PRE CABG EVAL EXAMS: CPT CODE: [id number] DUP EXTRACRANIAL DON[place] [id number] PROCEDURE INFORMATION: Exam: US Duplex Bilateral ExtracranialArteries Exam date and time: 02/01/2021 3:09 PM Age: 65 years old Clinical indication: Screening exam; Additional info: Pre cabg eval TECHNIQUE: Imaging protocol: Real-time Duplex ultrasound scan of the bilateral carotid and vertebral arteries combining hdz scale, color Doppler and spectral waveform analysis. Bilateral exam. COMPARISON: CT CHEST W/O CONTRAST 02/01/2021 12:48 PM FINDINGS: Any reported internal carotid artery stenoses indirectly reference the distal internal carotid diameter as the denominator for stenosis measurement, utilizing consensus panel criteria. RIGHT: Mild plaque formation is identified. ICA PSV: 87 cm/s CCA PSV: 65 cm/s ICA/CCA ratio: 1.3 Vertebral flow is antegrade. LEFT: Mild plaque formation is identified. ICA PSV: 57 cm/s CCA PSV: 151 cm/s ICA/CCA ratio: 0.4 Vertebral flow is antegrade. IMPRESSION: 1. RIGHT: Carotid artery stenosis estimated at less than 50% 2. LEFT: Carotid artery stenosis estimated at less than 50% at 1824 Reported and signed by: Reinier Conde M.D. CC: Fiorella Dixon MD; Kizzy Lynn NP Technologist: Minnie Lugo RDMS(AB) Trnscb Date/Time: 02/01/2021 (182) [email or web address] Orig Print D/T: S: 02/03/2021 (0798) Probe: PAGE 1 Signed ReportURINALYSIS [id number] 22:16:00 Test Item Value Reference Range Interpretation Comments UA COLOR (test code = COLU) YELLOW YEL/STRAW UA APPEARANCE (test code = CLEAR CLEAR APPU) UA GLUCOSE DIPSTICK (test code NEGATIVE NEGATIVE = DGLUU) UA BILIRUBIN DIPSTICK (test NEGATIVE NEGATIVE code = BILU) UA KETONE DIPSTICK (test code NEGATIVE NEGATIVE = KETU) UA SPECIFIC GRAVITY (test code 1.017 1.005-1.030 N = SGU) UA BLOOD DIPSTICK (test code = NEGATIVE NEGATIVE LUIS ANGEL) UA PH DIPSTICK (test code = 5.0 5.0-7.0 N ANNA) UA PROTEIN DIPSTICK (test code NEGATIVE NEGATIVE = PROU) UA UROBILINIOGEN DIPSTICK 0.2 mg/dL 0.2-1.0 (test code = URO) UA NITRITE DIPSTICK (test code NEGATIVE NEGATIVE = MIKIE) UA LEUKOCYTE ESTERASE DIPSTICK NEGATIVE NEGATIVE (test code = LEUU) UA RBC (test code = RBCU) 0-3 RBC/HPF 0-3 UA WBC NO REFLEX (test code = 0-3 WBC/HPF 0-3 WBCUCL) UA BACTERIA (test code = BACU) NONE SEEN /HPF NONE SEEN UA SQUAMOUS CELLS (test code = NONE SEEN /HPF NONE SEEN SQU) UA MUCUS (test code = MUCU) TRACE /LPF NONE SEEN TSH REFLEX TO [id number] 20:51:00 Test Item Value Reference Range Interpretation Comments TSH REFLEX TO FT4 (test code = 0.80 IU/mL 0.42-5.47 N TSHREFLEX) GLUCOSE [id number] 20:40:00 Test Item Value Reference Range Interpretation Comments GLUCOSE BEDSIDE (test 129 MG/DL 70-110 H Perfor med by certified code = GLUBED) press operator printing at [facility] [id number] 20:36:00 Test Item Value Reference Range Interpretation Comments HGBA1C% (test code = HGBA1C%) 6.5 %A1C 4.8-6.0 H LIPOPROTEIN [id number] 19:34:00 Test Item Value Reference Range Interpretation Comments LIPOPROTEIN LDL 82.3 mg/dL 0-100 N <100 OPTIMAL 100-129 NEAR (test code = LDL) OPTIMAL/AB OVE [id number] HIGH>IR=850 AMALIA Y HIGH*Guidelines provided by the National Cholesterol EducationProgra m Adult Treatment Panel III COMPREHENSIVE METABOLIC [id number] 19:20:00 Test Item Value Reference Range Interpretation Comments SODIUM (test code = NA) 140 mEq/L 134-147 N POTASSIUM (test code = 4.1 mEq/L 3.4-5.0 N K) CHLORIDE (test code = 106 mEq/L 100-108 N CL) CARBON DIOXIDE (test 26 mEq/l 21-33 N code = CO2) ANION GAP (test code = 12 0-20 N GAP) GLUCOSE (test code = 160 mg/dL 70-110 H GLU) BLOOD UREA NITROGEN 25 mg/dL 7-18 H (test code = BUN) GLOMERULAR FILTRATION 75.2 80-90 L Units of measure = RATE (test code = GFR) ml/mi n/1.73 m2 CREATININE (test code = 1.0 mg/dL 0.6-1.3 N CREAT) TOTAL PROTEIN (test 6.7 g/dL 6.4-8.2 N code = PROT) ALBUMIN (test code = 4.20 g/dL 3.4-5.0 N ALB) CALCIUM (test code = 9.4 mg/dL 8.0-10.5 N CA) BILIRUBIN TOTAL (test 1.60 mg/dL 0.0-1.0 H code = BILT) SGOT/AST (test code = 17 IUnit/L 15-37 N AST) SGPT/ALT (test code = 15 IUnit/L 30-65 L ALT) ALKALINE PHOSPHATASE 75 IUnit/L 20-125 N TOTAL (test code = ALKP) [id number] 19:20:00 Test Item Value Reference Range Interpretation Comments PHOSPHOROUS (test code = PHOS) 3.5 MG/DL 2.5-4.9 N [id number] 19:20:00 Test Item Value Reference Range Interpretation Comments MAGNESIUM (test code = MAG) 1.61 mg/dL 1.80-2.40 L TROP-I HIGH [id number] 19:20:00 Test Item Value Reference Range Interpretation Comments TROP-I HIGH 112 ng/L 0-54 H CAUTION: Units of the SENSITIVITY (test current te st methodology code = TROPIHS) (ng/L) diffe rfrom the prior test meth odology (ng/mL) by a fa ctor of 1000. 99t h Percentile Uppe r Reference Limit (URL): Fe males: 34 ng/LMales: 54 n g/L In order to distin guish acute elevations of h igh sensitivitytrop onin from other clinical conditions, the FourthUnive rsal Definition of M yocardial Infarction stressesclinica l assessment and the demonstration o f a rise and/orfall in s erial troponin result s above the URL. These resu lts were obtained using Siemens Atellica IM TnI Hreagent. Results from di fferent methodologies s hould not becompared to o ne another as quantitative results and URLs mayvar y by method. CALCIUM [id number] 19:20:00 Test Item Value Reference Range Interpretation Comments CALCIUM IONIZED (test code = JOANNE) 1.25 MMOL/L 1.12-1.32 N LACTIC [id number] 19:13:00 Test Item Value Reference Range Interpretation Comments LACTIC ACID (test code = LACT) 1.0 mmol/L 0.4-1.9 N PROTHROMBIN [id number] 19:08:00 Test Item Value Reference Range Interpretation Comments PROTHROMBIN TIME 11.8 SECONDS 9.3-12.9 N PATIENT (test code = PTP) INTERNATIONAL NORMAL 1.1 0.8-1.2 N TARGET INR BY RATIO (test code = INDICATIO N Indication INR) INR1. Prophylax is of venous thrombos is 2.0 - 3.0 (orthoped ic surgery), Proph ylaxis of venous throm bosis (other than hig h-risk surgery), Treat ment of Deep Vein Thrombosis/Pulm onary Embolism, Preve ntion of systemic emb olism - Tissue heart va lves, Acute Myocardia l Infarction (to prevent systemic emboli sm), Valvular heart disease, Atrial Fibrillation, Bileaflet mecha nical valve in aortic position.2. Mec hanical prosthetic valv es (high risk), 2. 5 - 3.5 Presence of Lup us Anticoagulant o r Antiphospholipi d Antibodies, Pre vention of systemic emb olism - Acute Myocardia l Infarction (to prevent recurrent infar ct). THROMBOPLASTIN TIME [id number] 19:08:00 Test Item Value Reference Range Interpretation Comments THROMBOPLASTIN TIME 31.0 Seconds 25.0-39.5 N Therape utic Range: PARTIAL (test code = 50.4 - 88.3 Seconds PTT) Effective 05/25/2018 CBC W/AUTO [id number] 18:57:00 Test Item Value Reference Range Interpretation Comments WHITE BLOOD CELL (test code = 9.9 x10 3/uL 4.5-11.0 N WBC) RED BLOOD CELL (test code = 5.23 x10 6/uL 4.00-5.60 N RBC) HEMOGLOBIN (test code = HGB) 14.3 g/dL 12.5-16.9 N HEMATOCRIT (test code = HCT) 42.3 % 37.5-50.7 N MEAN CELL VOLUME (test code = 80.9 fL 81.0-99.0 L MCV) MEAN CELL HGB (test code = MCH) 27.3 pg 27.0-33.0 N MEAN CELL HGB CONCETRATION 33.8 g/dL 33.0-37.0 N (test code = MCHC) RED CELL DISTRIBUTION WIDTH CV 15.5 % 11.5-14.5 H (test code = RDW) RED CELL DISTRIBUTION WIDTH SD 45.7 fL 37.0-54.0 N (test code = RDW-SD) PLATELET COUNT (test code = 174 x10 3/uL 150-400 N PLT) MEAN PLATELET VOLUME (test code 12.6 fL 7.0-9.0 H = MPV) NEUTROPHIL % (test code = NT%) 69.9 % 56.0-77.0 N IMMATURE GRANULOCYTE % (test 0.6 % 0.0-2.0 N code = IG%) LYMPHOCYTE % (test code = LY%) 18.4 % 14.0-32.0 N MONOCYTE % (test code = MO%) 7.2 % 4.8-9.0 N EOSINOPHIL % (test code = EO%) 3.0 % 0.3-3.7 N BASOPHIL % (test code = BA%) 0.9 % 0.0-2.0 N NUCLEATED RBC % (test code = 0.0 % 0-0 N NRBC%) NEUTROPHIL # (test code = NT#) 6.94 x10 3/uL 2.0-7.6 N IMMATURE GRANULOCYTE # (test 0.06 x10 3/uL 0.00-0.03 H code = IG#) LYMPHOCYTE # (test code = LY#) 1.83 x10 3/uL 1.0-3.8 N MONOCYTE # (test code = MO#) 0.72 x10 3/uL 0.1-0.8 N EOSINOPHIL # (test code = EO#) 0.30 x10 3/uL 0.0-0.2 H BASOPHIL # (test code = BA#) 0.09 x10 3/uL 0.0-0.2 N NUCLEATED RBC # (test code = 0.00 x10 3/uL 0.0-0.1 N NRBC#) MANUAL DIFF REQUIRED (test code NO = MDIFF)
--- NOTE | 2022-03-31 16:57 | RAD REPORT ---
EXAM DESCRIPTION: CT - Head Brain Wo Cont - 03/31/2022 4:50 pm CLINICAL HISTORY: HEADACHE COMPARISON: Head Brain Wo Cont dated 09/22/2019; Head Brain W Cont dated 08/08/2016 TECHNIQUE: All CT scans are performed using dose optimization technique as appropriate and may inclu de automated exposure control or mA/KV adjustment according to patient size. FINDINGS: No intracranial hemorrhage, hydrocephalus or extra-axial fluid collection.No areas of brai n edema or evidence of midline shift. The paranasal sinuses and mastoids are clear. The calvarium is intact. Vertebral atherosclerosis. IMPRESSION: No acute intracranial abnormality.
--- NOTE | 2022-03-31 18:03 | ER ---
Nurse's Notes [facility] Name: Steven Ashton Age: 66 yrs Sex: Male : 1955 Arrival Date: 03/31/2022 Time: 16:00 Bed IW2 Private MD: Diagnosis: Headache Presentation: 03/31 16:29 Chief complaint: Patient states: Left temporal to parietal area DE LA CRUZ yesterday, took jl7 Tylenol and it resolved. Started again at 1200, took Tylenol and only started resolving about 30 minutes ago. Denies N/V/D, denies fever. Reports usually does not get headaches. Coronavirus screen: At this time, the client does not indicate any symptoms associated with coronavirus-19. Ebola Screen: No symptoms or risks identified at this time. Initial Sepsis Screen: Does the patient meet any 2 criteria? No. Patient's initial sepsis screen is negative. Does the patient have a suspected source of infection? No. Patient's initial sepsis screen is negative. Risk Assessment: Do you want to hurt yourself or someone else? Patient reports no desire to harm self or others. Onset of symptoms was March 30, 2022. 16:29 Method Of Arrival: Ambulatory jl7 16:29 Acuity: KENDALL 3 jl7 Triage Assessment: 16:31 Headache History: Denies prior headaches. General: Appears in no apparent distress. jl7 uncomfortable, Behavior is calm, cooperative, appropriate for age. Pain: Complains of pain in right parietal area, left frontal area and left temporal area Pain currently is 2 out of 10 on a pain scale. at worst was 9 out of 10 on a pain scale. Pain began 1 day ago. Also complains of no other associated symptoms. Neuro: Level of Consciousness is awake, alert, obeys commands, Oriented to person, place, time, situation. Historical: - Allergies: 16:31 No Known Allergies; jl7 - Home Meds: 16:31 Xarelto 20 mg Oral tab 1 tab once daily [Active]; Toujeo SoloStar 300 unit/mL (1.5 mL) jl7 subcutaneous inpn [Active]; pantoprazole 40 mg Oral TbEC 1 tab once daily [Active]; metformin 1,000 mg Oral tab 1 tab 2 times per day [Active]; losartan-hydrochlorothiazide 100-25 mg Oral tab 1 tab once daily [Active]; atorvastatin 20 mg Oral tab 1 tab once daily [Active]; - PMHx: 16:31 CVA; Diabetes - NIDDM; Hypertension; Hypercholesterolemia; jl7 - PSHx: 16:31 Gastric Bypass; jl7 - Immunization history:: Client reports receiving the 2nd dose of the Covid vaccine. - Social history:: Smoking status: Patient denies any tobacco usage or history of. Screenin:12 [facility] ED Fall Risk Assessment (Adult) History of falling in the last 3 months, ss including since admission No falls in past 3 months (0 pts). Abuse screen: Denies threats or abuse. Denies injuries from another. Nutritional screening: No deficits noted. Tuberculosis screening: Never had TB. Assessment: 18:12 General: Appears in no apparent distress. comfortable, Behavior is calm, cooperative. ss Pain: Complains of pain in left side of forehead and left temporal area and left frontal area and right parietal area. Neuro: Level of Consciousness is awake, alert, obeys commands, Oriented to person, place, time, situation. Respiratory: Respiratory effort is even, unlabored. Derm: Skin is intact, is healthy with good turgor, Skin is dry. Musculoskeletal: Swelling absent. Vital Signs: 16:29 BP 133 / 66; Pulse 83; Resp 17; Temp 98.2; Pulse Ox 98% on R/A; Weight 109.77 kg; jl7 Height 5 ft. 7 in. (170.18 cm); Pain 2/10; 16:29 Body Mass Index 37.90 (109.77 kg, 170.18 cm) jl7 [place] Coma Score: 17:07 Eye Response: spontaneous(4). Verbal Response: oriented(5). Motor Response: obeys kb commands(6). Total: 15. ED Course: 16:00 Patient arrived in ED. rg4 16:31 Neda Guidry FNP-C is [facility]. kb 16:31 Vern Casas MD is Attending Physician. kb 16:31 Triage completed. jl7 16:35 Arm band placed on right wrist. jl7 18:12 Lian Guido, RN is Primary Nurse. ss 18:12 Patient has correct armband on for positive identification. Bed in low position. Call ss light in reach. 18:13 No provider procedures requiring assistance completed. Patient did not have IV access ss during this emergency room visit. Administered Medications: No medications were administered Medication: 18:12 VIS not applicable for this client. ss Outcome: 18:03 Discharge ordered by . kitty 18:13 Discharged to home ambulatory, with significant other. ss 18:13 Condition: good 18:13 Discharge instructions given to patient, family, Instructed on discharge instructions, follow up and referral plans. Demonstrated understanding of instructions, follow-up care. 18:13 Patient left the ED. ss Signatures: Neda Guidry, JENIFER-C JENIFER-Lian Delaney, RN RN ss Jessica Sorensen rg4 Reji Harvey RN RN jl7 Corrections: (The following items were deleted from the chart) 16:34 16:31 Allergies: Dramamine; jl7 jl7 16:34 16:31 Allergies: TETRACYCLINES; jl7 jl7 16:34 16:31 Home Meds: Invokana 300 mg Oral tab 1 tab once daily; jl7 jl7 16:35 16:29 Chief complaint: Patient states: Left parietal area DE LA CRUZ yesterday, took Tylenol jl7 and it resolved. Started again at 1200, took Tylenol and only started resolving about 30 minutes ago. Denies N/V/D, denies fever. Reports usually does not get headaches jl7
--- NOTE | 2022-03-31 18:03 | EDPHYS ---
Physician Documentation [facility] Name: Steven Ashton Age: 66 yrs Sex: Male : 1955 Arrival Date: 03/31/2022 Time: 16:00 Bed IW2 Private MD: ED Physician Vern Casas HPI: 03/31 17:09 This 66 yrs old Male presents to ER via Ambulatory with complaints of Headache.kb 17:09 The patient complains of pain to the left side of forehead. The patient describes the kb headache as throbbing. Onset: The symptoms/episode began/occurred yesterday. Associated signs and symptoms: The patient has no apparent associated signs or symptoms. Severity of symptoms: At its worst the pain was moderate, in the emergency department the pain has improved. Headache History: Denies prior headaches. The symptoms are alleviated by nothing. the symptoms are aggravated by nothing. The patient has not experienced similar symptoms in the past. The patient has not recently seen a physician. Historical: - Allergies: 16:31 No Known Allergies; jl7 - Home Meds: 16:31 Xarelto 20 mg Oral tab 1 tab once daily [Active]; Toujeo SoloStar 300 unit/mL (1.5 mL) jl7 subcutaneous inpn [Active]; pantoprazole 40 mg Oral TbEC 1 tab once daily [Active]; metformin 1,000 mg Oral tab 1 tab 2 times per day [Active]; losartan-hydrochlorothiazide 100-25 mg Oral tab 1 tab once daily [Active]; atorvastatin 20 mg Oral tab 1 tab once daily [Active]; - PMHx: 16:31 CVA; Diabetes - NIDDM; Hypertension; Hypercholesterolemia; jl7 - PSHx: 16:31 Gastric Bypass; jl7 - Immunization history:: Client reports receiving the 2nd dose of the Covid vaccine. - Social history:: Smoking status: Patient denies any tobacco usage or history of. ROS: 17:09 Constitutional: Negative for fever, chills, and weight loss. kb 17:09 Neuro: Positive for headache. 17:09 All other systems are negative. Exam: 17:09 Constitutional: This is a well developed, well nourished patient who is awake, alert, kb and in no acute distress. Head/Face: Normocephalic, atraumatic. ENT: Moist Mucous membranes Cardiovascular: Regular rate and rhythm with a normal S1 and S2. No gallops, murmurs, or rubs. No pulse deficits. Respiratory: Respirations even and unlabored. No increased work of breathing. Talking in full sentences Abdomen/GI: Soft, non-tender. No distention Skin: Warm, dry with normal turgor. Normal color. MS/ Extremity: Pulses equal, no cyanosis. Neurovascular intact. Full, normal range of motion. Neuro: Awake and alert, GCS 15, oriented to person, place, time, and situation. Moves all extremities. Normal gait. Psych: Awake, alert, with orientation to person, place and time. Behavior, mood, and affect are within normal limits. Vital Signs: 16:29 BP 133 / 66; Pulse 83; Resp 17; Temp 98.2; Pulse Ox 98% on R/A; Weight 109.77 kg; jl7 Height 5 ft. 7 in. (170.18 cm); Pain 2/10; 16:29 Body Mass Index 37.90 (109.77 kg, 170.18 cm) jl7 C[place] Coma Score: 17:07 Eye Response: spontaneous(4). Verbal Response: oriented(5). Motor Response: obeys kb commands(6). Total: 15. MDM: 16:31 Patient medically screened. kb 17:07 Differential diagnosis: migraine, tension headache. Data reviewed: vital signs, nurses kb notes. Counseling: I had a detailed discussion with the patient and/or guardian regarding: the historical points, exam findings, and any diagnostic results supporting the discharge/admit diagnosis, radiology results, the need for outpatient follow up, a family practitioner, to return to the emergency department if symptoms worsen or persist or if there are any questions or concerns that arise at home. ED course: Patient is a 66-year-old male who presents for headache to left frontal area that started yesterday. States he took Tylenol yesterday which resolved the pain. Today he took Tylenol again when the headache returned brought his pain down from an 8 to a 2. Denies any other symptoms. Physical exam unremarkable. CT scan shows no acute findings. Will discharge home to follow-up with neurology for persistent symptoms.. 03/31 16:35 Order name: CT Head Brain wo Cont kb 03/31 16:58 Order name: CT; Complete Time: 16:59 EDMS Administered Medications: No medications were administered Disposition: 04/01 08:04 Co-signature as Attending Physician, Vern Casas MD I reviewed the patient's care rn provided by the Advanced Practice Provider and agree with the diagnosis and treatment plan. Disposition Summary: 03/31/22 18:03 Discharge Ordered Location: Home kb Condition: Stable kb Diagnosis - Headache kb Followup: kb - With: Private Physician - When: 2 - 3 days - Reason: Recheck today's complaints, Continuance of care, Re-evaluation by your physician Followup: kb - With: Emergency Department - When: As needed - Reason: Worsening of condition Discharge Instructions: - Discharge Summary Sheet kb - General Headache Without Cause, [id number] kb Forms: - Medication Reconciliation Form kb - Thank You Letter kb - Antibiotic Education kb - Prescription Opioid Use kb Signatures: Dispatcher [employer] EDMS Neda Guidry FNP-C FNP-CkVern Skinner MD MD rn Leal, Jahala, RN RN jl7 Corrections: (The following items were deleted from the chart) 03/31 16:34 16:31 Allergies: Dramamine; jl7 jl7 16:34 16:31 Allergies: TETRACYCLINES; jl7 jl7 16:34 16:31 Home Meds: Invokana 300 mg Oral tab 1 tab once daily; jl7 jl7 17:10 17:07 ED course: Patient is a 66-year-old male who presents for headache to right kb frontal area that started yesterday. States he took Tylenol yesterday which resolved the pain. Today he took Tylenol again when the headache returned brought his pain down from an 8 to a 2. Denies any other symptoms. Physical exam unremarkable. CT scan shows no acute findings. Will discharge home to follow-up with neurology for persistent symptoms.. kb
[2022-03-31 19:28] VITALS: BP 133/66; TEMP 98.2; O2SAT 98
== END 2022-03-31 18:13 | disposition home or self-care (01) ==
LOC: ER 15:50
DX: R51.9 Headache, unspecified (principal); I10 Essential (primary) hypertension; Z86.73 Personal history of transient ischemic attack (TIA), and cerebral infarction without residual deficits; E11.9 Type 2 diabetes mellitus without complications; Z79.01 Long term (current) use of anticoagulants; Z79.4 Long term (current) use of insulin
CPT/HCPCS: 70450; 99281

== ENCOUNTER 2023-03-30 06:53 | Day surgery (SDC) | payer BC, OTHER ==
[2023-03-25 13:09] LABS: Absolute Lymphocytes (CBC) 2.3 K/uL (0.7-4.9); Lymphocytes % 25.6 % (15.3-44.8); MCV 74.2 fL (80-100); MPV 9.9 fL (7.6-11.3); Platelets 154 thou/uL (152-406); RBC Red Blood Cell Count 5.67 M/uL (4.33-5.43)
[2023-03-25 13:18] LABS: Protime INR 1.76
--- NOTE | 2023-03-25 13:20 | RAD REPORT ---
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 TECHNIQUE: PA and lateral views of the chest were obtained. FINDINGS: The lungs are hyperexpanded compatible with COPD. The heart is upper limit of normal in si ze. Small hiatal hernia. Sternotomy wires are present. IMPRESSION: COPD without acute process identified. The USPSTF recommends annual screening for lung cancer with low-dose CT (LDCT) in adults aged 50 to 8 0 years who have a 20 pack-year smoking history and currently smoke or have quit within the past 15 y ears.
[2023-03-25 13:25] LABS: Potassium 3.5 mEq/L (3.5-5.1)
--- NOTE | 2023-03-26 14:41 | EKG ---
Test Date: 2023-03-25 Test Time: 14:06:20 Digital Editor: CATRACHO MEASUREMENT RESULTS: Intervals: Rate: 79 NV: 194 QRSD: 96 QT: 402 QTc: 460 [place]: P: 71 NV: 194 QRS: -33 T: 43 INTERPRETIVE STATEMENTS: Normal sinus rhythm Left axis deviation Nonspecific T wave abnormality Prolonged QT Abnormal ECG Compared to ECG 01/15/2021 13:50:07 Left-axis deviation now present T-wave abnormality now present Prolonged QT interval now present Myocardial infarct finding no longer present Electronically Signed On 03-26-23 14:39:53 [employer]ORSERADISH MAKER by Derik Diaz
[2023-03-30] MEDS ORDERED: FENTANYL CITR 100 MCG/2 ML ONE (07:00)
[2023-03-30] MEDS ORDERED: VERAPAMIL HCL 10 MG/4 ML VIAL IV ONE (07:00)
[2023-03-30] MEDS ORDERED: HEPA 1000U/500MLS 2,000 UNIT/1,000 ML BAG IV ONE (07:00)
[2023-03-30] MEDS ORDERED: LIDOCAINE 1% 20 ML MDV ONE ×2 (07:00→08:16)
[2023-03-30] MEDS ORDERED: HEPARIN 10,000 UNIT/10 ML VIAL IV ONE (07:01)
[2023-03-30] MEDS ORDERED: TICAGRELOR 90 MG TABLET PO ONE (07:01)
[2023-03-30] MEDS ORDERED: ATROPINE SULF 1 MG/10 ML SYR IV ONE (07:01)
[2023-03-30] MEDS ORDERED: HEPARIN 5000 UNIT/ML 1 ML VIAL ONE (07:01)
[2023-03-30] MEDS ORDERED: MIDAZOLAM HCL 2 MG/2 ML INJ ONE (07:01)
[2023-03-30] MEDS ORDERED: CLOPIDOGREL 75 MG TABLET ONE (07:02)
[2023-03-30] MEDS ORDERED: ASPIRIN 325 MG TAB ONE (07:02)
[2023-03-30] MEDS ORDERED: NA CHLORIDE 0.9% 500 ML ONE (07:06)
[2023-03-30] MEDS ORDERED: NITROGLYCERIN/D5W 25 MG/250 ML BTL IV ONE (07:31)
--- NOTE | 2023-03-30 09:01 | OP ---
Date of Procedure: 03/30/2023 Surgeon: KEO VALDIVIA Procedures Performed: 1.Selective coronary angiogram with bypass graft study. 2.Left heart catheterization. Indication: Chest pain with abnormal stress test. Access: Right femoral artery 6-Namibian, closed with 6-Namibian Angio-Seal. Complications: None. Bleeding: Less than 20 mL. Anesthesia: Total sedation time is 45 minutes. Description Of Procedure: After risks, benefits, and alternatives were explained, the patient agreed to procedure and signed informed consent. The patient was [facility], prepped and draped in usual sterile fashion. Then, I accessed right femoral artery using jennifer ropuncture kit, ultrasound guidance, fluoroscopy, placed 6-Namibian Model sheath and took a 6-Namibian JL4 catheter into the aortic root over a J-wire, engaged left main, took standard views, and exchang ed for 6-Namibian JR4 catheter and across the aortic valve with wire, measured LVEDP. Pullback did not record any gradient. Then, using the JR4 catheter, engaged the RCA, SVG to RCA, SVG to OM1, SVG to OM2, and SUERO to LAD, and took standard views and then removed the catheter and sheath, placed a 6-Fr ench Angio-Seal with good hemostasis. Findings: 1.Left main, diffuse disease that is mild. 2.LAD, proximally occluded 100%. 3.Left circumflex, diffuse 80% to 90% stenosis proximally. 4.RCA, it is totally occluded proximally. Bypass graft study: 1.Patent SVG to RCA. 2.Patent SVG to OM1. 3.Patent SVG to OM2. 4.Patent SUERO graft that is connected to diagonal 1 and then to the LAD. 5.LVEDP is 14 mmHg. Conclusion: Severe multivessel samish coronary artery disease with widely patent 5 grafts, SVG to RC A, SVG to OM1, SVG to OM2, SUERO connected to the diagonal branch and then to the LAD. Plan: Medical management. SR/MODL Voice ID: [id number] Report ID: [id number]
[2023-03-30 10:27] VITALS: O2SAT 98
[2023-03-30 11:54] VITALS: BP 148/74; TEMP 97.1
== END 2023-03-30 11:44 | disposition home or self-care (01) ==
LOC: CCL 06:53
PROVIDERS: ATTEND Internal Medicine
DX: I25.10 Atherosclerotic heart disease of native coronary artery without angina pectoris (principal); I25.82 Chronic total occlusion of coronary artery; I65.23 Occlusion and stenosis of bilateral carotid arteries; I48.0 Paroxysmal atrial fibrillation; I10 Essential (primary) hypertension; E11.9 Type 2 diabetes mellitus without complications; E78.2 Mixed hyperlipidemia; G47.00 Insomnia, unspecified; Z95.1 Presence of aortocoronary bypass graft; Z79.01 Long term (current) use of anticoagulants; Z79.84 Long term (current) use of oral hypoglycemic drugs; Z79.899 Other long term (current) drug therapy
CPT/HCPCS: 93005; 85025; 80048; 36415; 85610; 82947 ×2; 85730; 71046; 93459; 76937; C1893; C1760; Q9967; J2001 ×2; J2250; J3010; J7040; 93455; 93458; 99152; 99153; J0461; J1644